=== PATIENT | female | born 1965 | race Hispanic/Latino ===

== ENCOUNTER 2017-03-01 17:53 | Emergency (ER) | payer OTHER ==
[~2017-03-01] VITALS: Ht 149.9 cm; Wt 80.8 kg
[~2017-03-01 17:53] MED LIST: ACETAMINOPHEN325 MG PO; ACTOS45 MG OR; AGGRENOX 200/251 CAP; AMLODIPINE2.5 MG PO; ASPIRIN325 MG; ATIVAN0.5 MG OR; ATORVASTATIN CA40 MG PO; BACTRIM DS1 TAB PO; BL ADULT ASA81 MG PO; CIPRO500 MG OR; CIPRO500 MG PO; CIPROFLOXACN500 MG PO; COREG6.25 MG PO; COZAAR50 MG PO; DIFLUCAN150 MG OR; FERR SULFATE325 MG OR; FLUCONAZOLE150 MG PO; GABAPENTIN300 MG PO; GLIPIZIDE ER10 M1 OR; GLUCOVANCE5 MG/500 M OR; GLYB/METFO5 MG/500 M OR; HUMULIN 70/30 SC; HYDROCHLOROT12.5 MG OR; HYDROCHLOROT12.5 MG PO; KEFLEX500 M1 PO; LEVAQUIN500 MG OR; LISINOPRIL10 MG PO; LISINOPRIL5 MG PO; LOPID600 MG OR; LOPID600 MG PO; LOSARTAN POT25 MG PO; MACROBID100 MG OR; MECLIZINE25 M1 PO; METFORMIN1000 MG OR; METFORMIN500 M1 OR; METFORMIN500 MG PO; MICRONASE5 MG OR; NIFEDIAC CC60 MG OR; NOVOLIN 70/30 INNLT SC; NOVOLIN 70/30 SC; PENTOXIFYLLI400 MG PO; PLAVIX75 MG PO; PRAVACHOL20 MG OR; PRENATAL1 TAB OR; PT DOESN'T KNOW MEDS; SERTRALINE HCL100 MG PO; SIMVASTATIN40 MG PO; TAM75CAP PO; TESSALON PER100 MG PO; TRICOR145 MG PO; ULTRAM50 MG OR; ULTRAM50 MG PO; VIBRAMYCIN100 MG OR; ZESTRIL10 M1 OR; ZITHROMAX250 MG OR; ZITHROMAX250 MG PO; ZOFRAN ODT4 MG OR; ZOFRAN ODT4 MG PO; ZOFRAN ODT8 MG SL; ZOLOFT50 MG PO
[2017-03-01] MEDS ORDERED: ZESTRIL10 MG PO (18:12)
[2017-03-01] MEDS ORDERED: METFORMIN500 M2 PO (18:13)
[2017-03-01 18:53] LABS: URINE BILIRUBIN - DIPSTICK NEGATIVE (NEGATIVE); URINE BLOOD DIPSTICK TRACE-INTACT (NEGATIVE); URINE COLOR YELLOW; URINE GLUCOSE - DIPSTICK >=1000 mg/dL (NEGATIVE); URINE KETONE NEGATIVE (NEGATIVE); URINE LEUK ESTERASE NEGATIVE (NEGATIVE); URINE PH 5.5 (4.5-8.0); URINE PROTEIN - DIPSTICK NEGATIVE (NEG-TRACE); URINE SPECIFIC GRAVITY 1.015; URINE UROBILINOGEN - DIPSTICK 0.2 E.U./dL (0.2)
[2017-03-01 18:54] LABS: HEMATOCRIT 39.1 % (37.0-47.0); HEMOGLOBIN 13.5 g/dl (12.0-16.0); IMMATURE GRANULOCYTES 0.4 % (0.0-1.0); MEAN CELL VOLUME 83.2 fL CALC (80.0-100.0); MEAN CORPUSCULAR HGB 28.7 pG CALC (26.0-32.0); MEAN CORPUSCULAR HGB CONC 34.5 g/L CALC (32.0-36.0); NEUT# 6.22 thou/uL (2.00-7.15); RED BLOOD COUNT 4.7 mill/uL (4.20-5.60); RED CELL DISTRI WIDTH 12.7 % (11.5-15.5)
[2017-03-01 18:56] LABS: URINE CLARITY CLOUDY; URINE NITRITE - DIPSTICK POSITIVE (Negative)
[2017-03-01 19:03] LABS: URINE BACTERIA MODERATE hpf; URINE SQUAMOUS EPITHELIAL CELL FEW EPI/hpf (0-FEW); URINE WBC 20-50 WBC/hpf (0-5)
[2017-03-01 19:14] LABS: ALBUMIN 4.4 g/dL (3.2-5.0); ALKALINE PHOSPHATASE 192 u/l (38-126); ANION GAP 18 (6-22 (CALC)); BILIRUBIN, TOTAL 0.9 mg/dL (0.0-1.4); BUN 15 mg/dL (7-17); BUN/CREATININE RATIO 26 (12-20 (CALC)); CALCIUM 9.2 mg/dL (8.4-10.2); CARBON DIOXIDE 25 mmol/l (22-30); CHLORIDE 98 mmol/l (95-108); CREATININE 0.6 mg/dL (0.5-1.0); GFR > 60 ML/MIN (>=60 (CALC)); GFR FOR AFR.AMER. > 60 ML/MIN (>=60 (CALC)); GLUCOSE 346 mg/dL (65-105); SGOT/AST 29 u/l (14-36); SGPT/ALT 41 u/l (9-52); SODIUM 137 mmol/l (137-146); TOTAL PROTEIN 8.1 g/dL (6.3-8.2)
[2017-03-01] MEDS ORDERED: PYRIDIUM200 MG PO (20:38)
[2017-03-01] MEDS ORDERED: CIPROFLOXACN500 MG PO (20:38)
[2017-03-01 20:43] VITALS: BP 144/65
== END 2017-03-01 20:50 | disposition home or self-care (01) | DRG 690 ==
LOC: ED 17:53
PROVIDERS: Emergency Medicine
DX: N39.0 Urinary tract infection, site not specified (principal); I10 Essential (primary) hypertension; G45.9 Transient cerebral ischemic attack, unspecified; F41.9 Anxiety disorder, unspecified; E11.9 Type 2 diabetes mellitus without complications; B96.20 Unspecified Escherichia coli [E. coli] as the cause of diseases classified elsewhere; R10.32 Left lower quadrant pain; R10.31 Right lower quadrant pain
CPT/HCPCS: J1956

== ENCOUNTER 2017-03-28 14:03 | Inpatient (IN) | payer OTHER ==
[~2017-03-28] VITALS: Ht 149.9 cm; Wt 83.0 kg
[~2017-03-28 14:03] MED LIST changes: +METFORMIN500 M2 PO; +PYRIDIUM200 MG PO; +ZESTRIL10 MG PO
[2017-03-28 14:53] LABS: HEMATOCRIT 41.5 % (37.0-47.0); HEMOGLOBIN 13.6 g/dl (12.0-16.0); IMMATURE GRANULOCYTES 0.2 % (0.0-1.0); MEAN CELL VOLUME 86.8 fL CALC (80.0-100.0); MEAN CORPUSCULAR HGB 28.5 pG CALC (26.0-32.0); MEAN CORPUSCULAR HGB CONC 32.8 g/L CALC (32.0-36.0); PLATELET COUNT 141 thou/uL (130-400); RED BLOOD COUNT 4.78 mill/uL (4.20-5.60); RED CELL DISTRI WIDTH 13.2 % (11.5-15.5)
[2017-03-28 14:55] LABS: URINE BILIRUBIN - DIPSTICK NEGATIVE (NEGATIVE); URINE BLOOD DIPSTICK SMALL (NEGATIVE); URINE COLOR YELLOW; URINE GLUCOSE - DIPSTICK >=1000 mg/dL (NEGATIVE); URINE KETONE NEGATIVE (NEGATIVE); URINE NITRITE - DIPSTICK NEGATIVE (Negative); URINE PROTEIN - DIPSTICK TRACE mg/dL (NEG-TRACE); URINE UROBILINOGEN - DIPSTICK 0.2 E.U./dL (0.2)
[2017-03-28 14:56] LABS: URINE LEUK ESTERASE SMALL (NEGATIVE)
[2017-03-28 14:57] LABS: URINE CLARITY CLOUDY
[2017-03-28 15:05] LABS: ALBUMIN 4.5 g/dL (3.2-5.0); ALKALINE PHOSPHATASE 157 u/l (38-126); ANION GAP 19 (6-22 (CALC)); BILIRUBIN, TOTAL 0.9 mg/dL (0.0-1.4); BUN 15 mg/dL (7-17); BUN/CREATININE RATIO 23 (12-20 (CALC)); CALCIUM 9.4 mg/dL (8.4-10.2); CARBON DIOXIDE 31 mmol/l (22-30); CHLORIDE 100 mmol/l (95-108); CREATININE 0.6 mg/dL (0.5-1.0); GFR > 60 ML/MIN (>=60 (CALC)); GFR FOR AFR.AMER. > 60 ML/MIN (>=60 (CALC)); GLUCOSE 316 mg/dL (65-105); LIPASE 53 u/l (23-300); POTASSIUM 4.3 mmol/l (3.5-5.1); SGOT/AST 40 u/l (14-36); SGPT/ALT 33 u/l (9-52); SODIUM 146 mmol/l (137-146)
[2017-03-28 15:08] LABS: URINE BACTERIA RARE hpf; URINE SQUAMOUS EPITHELIAL CELL FEW EPI/hpf (0-FEW)
[2017-03-28 15:17] LABS: MANUAL DIFFERENTIAL YES
[2017-03-28 15:18] LABS: BAND 38 % (0-8)
[2017-03-28] MEDS ORDERED: NOVOLIN N100 UNIT/1 SC (16:29)
[2017-03-28] MEDS ORDERED: AMLODIPINE BESYL5 MG PO (16:29)
[2017-03-28] MEDS ORDERED: ATORVASTATIN CA40 MG PO (16:30)
[2017-03-28 17:38] VITALS: BP 115/61
[2017-03-28 19:30] VITALS: BP 98/68
[2017-03-29 00:30] VITALS: BP 115/72
[2017-03-29 04:40] VITALS: BP 115/72
[2017-03-29 05:52] LABS: HEMATOCRIT 32.3 % (37.0-47.0); HEMOGLOBIN 10.7 g/dl (12.0-16.0); MEAN CELL VOLUME 87.3 fL CALC (80.0-100.0); MEAN CORPUSCULAR HGB 28.9 pG CALC (26.0-32.0); MEAN CORPUSCULAR HGB CONC 33.1 g/L CALC (32.0-36.0); RED BLOOD COUNT 3.7 mill/uL (4.20-5.60); RED CELL DISTRI WIDTH 13.3 % (11.5-15.5)
[2017-03-29 06:05] LABS: ANION GAP 14 (6-22 (CALC)); BUN 11 mg/dL (7-17); BUN/CREATININE RATIO 19 (12-20 (CALC)); CALCIUM 7.8 mg/dL (8.4-10.2); CARBON DIOXIDE 27 mmol/l (22-30); CHLORIDE 105 mmol/l (95-108); CREATININE 0.6 mg/dL (0.5-1.0); GFR > 60 ML/MIN (>=60 (CALC)); GFR FOR AFR.AMER. > 60 ML/MIN (>=60 (CALC)); GLUCOSE 324 mg/dL (65-105); MAGNESIUM 1.2 mg/dL (1.6-2.3); POTASSIUM 3.7 mmol/l (3.5-5.1); SODIUM 141 mmol/l (137-146)
[2017-03-29 08:14] VITALS: BP 129/63
[2017-03-29 16:19] VITALS: BP 150/80; BP 180/90
[2017-03-29 19:30] VITALS: BP 150/76
[2017-03-29 23:48] VITALS: BP 127/72
[2017-03-30 05:02] VITALS: BP 170/82
[2017-03-30 06:03] LABS: HEMATOCRIT 30.1 % (37.0-47.0); MEAN CELL VOLUME 86.7 fL CALC (80.0-100.0); MEAN CORPUSCULAR HGB 28.8 pG CALC (26.0-32.0); MEAN CORPUSCULAR HGB CONC 33.2 g/L CALC (32.0-36.0); RED BLOOD COUNT 3.47 mill/uL (4.20-5.60); RED CELL DISTRI WIDTH 13.2 % (11.5-15.5)
[2017-03-30 06:16] LABS: ANION GAP 13 (6-22 (CALC)); BUN 7 mg/dL (7-17); BUN/CREATININE RATIO 12 (12-20 (CALC)); CALCIUM 8.2 mg/dL (8.4-10.2); CARBON DIOXIDE 29 mmol/l (22-30); CHLORIDE 104 mmol/l (95-108); CREATININE 0.5 mg/dL (0.5-1.0); GFR > 60 ML/MIN (>=60 (CALC)); GFR FOR AFR.AMER. > 60 ML/MIN (>=60 (CALC)); GLUCOSE 136 mg/dL (65-105); MAGNESIUM 1.3 mg/dL (1.6-2.3); POTASSIUM 3.6 mmol/l (3.5-5.1); SODIUM 141 mmol/l (137-146)
[2017-03-30 07:48] VITALS: BP 177/85
[2017-03-30 16:30] VITALS: BP 174/80
[2017-03-30 19:20] VITALS: BP 198/98
[2017-03-31 05:22] VITALS: BP 130/80
[2017-03-31 05:51] LABS: HEMATOCRIT 30.7 % (37.0-47.0); HEMOGLOBIN 10.2 g/dl (12.0-16.0); IMMATURE GRANULOCYTES 0.4 % (0.0-1.0); MEAN CELL VOLUME 86.5 fL CALC (80.0-100.0); MEAN CORPUSCULAR HGB 28.7 pG CALC (26.0-32.0); MEAN CORPUSCULAR HGB CONC 33.2 g/L CALC (32.0-36.0); NEUT# 2.22 thou/uL (2.00-7.15); RED BLOOD COUNT 3.55 mill/uL (4.20-5.60); RED CELL DISTRI WIDTH 13.1 % (11.5-15.5)
[2017-03-31 05:59] LABS: ANION GAP 15 (6-22 (CALC)); BUN 9 mg/dL (7-17); BUN/CREATININE RATIO 17 (12-20 (CALC)); CALCIUM 8.6 mg/dL (8.4-10.2); CARBON DIOXIDE 28 mmol/l (22-30); CHLORIDE 105 mmol/l (95-108); CREATININE 0.5 mg/dL (0.5-1.0); GFR > 60 ML/MIN (>=60 (CALC)); GFR FOR AFR.AMER. > 60 ML/MIN (>=60 (CALC)); GLUCOSE 198 mg/dL (65-105); MAGNESIUM 1.8 mg/dL (1.6-2.3); POTASSIUM 3.8 mmol/l (3.5-5.1); SODIUM 144 mmol/l (137-146)
[2017-03-31 08:00] VITALS: BP 190/82
[2017-03-31 15:17] VITALS: BP 156/73
[2017-03-31 19:36] VITALS: BP 108/46
[2017-03-31 19:38] VITALS: BP 166/66
[2017-04-01 05:35] VITALS: BP 135/74
[2017-04-01 05:48] LABS: HEMATOCRIT 33.6 % (37.0-47.0); HEMOGLOBIN 11.4 g/dl (12.0-16.0); IMMATURE GRANULOCYTES 0.6 % (0.0-1.0); MEAN CELL VOLUME 85.3 fL CALC (80.0-100.0); MEAN CORPUSCULAR HGB 28.9 pG CALC (26.0-32.0); MEAN CORPUSCULAR HGB CONC 33.9 g/L CALC (32.0-36.0); NEUT# 2.72 thou/uL (2.00-7.15); RED BLOOD COUNT 3.94 mill/uL (4.20-5.60); RED CELL DISTRI WIDTH 12.8 % (11.5-15.5)
[2017-04-01 06:03] LABS: ANION GAP 17 (6-22 (CALC)); BUN 12 mg/dL (7-17); BUN/CREATININE RATIO 24 (12-20 (CALC)); CARBON DIOXIDE 28 mmol/l (22-30); CHLORIDE 101 mmol/l (95-108); CREATININE 0.5 mg/dL (0.5-1.0); GFR > 60 ML/MIN (>=60 (CALC)); GFR FOR AFR.AMER. > 60 ML/MIN (>=60 (CALC)); GLUCOSE 225 mg/dL (65-105); MAGNESIUM 1.4 mg/dL (1.6-2.3); POTASSIUM 3.7 mmol/l (3.5-5.1); SODIUM 143 mmol/l (137-146)
[2017-04-01 08:02] VITALS: BP 156/85
[2017-04-01] MEDS ORDERED: ASPIRIN CHEWABL81 MG PO (12:36)
[2017-04-01] MEDS ORDERED: LEVEMIR100 UNIT/M SC (12:36)
[2017-04-01] MEDS ORDERED: LISINOPRIL20 M1 PO (12:36)
[2017-04-01] MEDS ORDERED: FLORASTOR250 M1 PO (12:36)
[2017-04-01] MEDS ORDERED: ROCEPHIN 2 GM2 GM IV (12:37)
== END 2017-04-01 16:53 | disposition home or self-care (01) | DRG 872 ==
LOC: ED 14:03 → ED-I 16:33 → ED 16:45 → MS2 16:46
PROVIDERS: Family Medicine; Nurse Practitioner Family; ADMIT Internal Medicine; ATTEND Internal Medicine
PROC: 02HV33Z Insertion of Infusion Device into Superior Vena Cava, Percutaneous Approach (ICD-10-PCS; principal; 2017-03-28)
PROC: 3E0234Z Introduction of Serum, Toxoid and Vaccine into Muscle, Percutaneous Approach (ICD-10-PCS; 2017-03-31)
PROC: 3E0234Z Introduction of Serum, Toxoid and Vaccine into Muscle, Percutaneous Approach (ICD-10-PCS; 2017-03-31)
DX: A41.51 Sepsis due to Escherichia coli [E. coli] (principal); E11.65 Type 2 diabetes mellitus with hyperglycemia; N10 Acute pyelonephritis; I10 Essential (primary) hypertension; F17.210 Nicotine dependence, cigarettes, uncomplicated; E78.5 Hyperlipidemia, unspecified; F32.9 Major depressive disorder, single episode, unspecified; E87.6 Hypokalemia; E83.42 Hypomagnesemia; D64.9 Anemia, unspecified; E66.9 Obesity, unspecified; Z68.36 Body mass index [BMI] 36.0-36.9, adult; Z91.14 Patient's other noncompliance with medication regimen; Z23 Encounter for immunization; Z79.84 Long term (current) use of oral hypoglycemic drugs; Z79.4 Long term (current) use of insulin
CPT/HCPCS: J0692; J3475; Q9967

== ENCOUNTER 2017-07-20 09:48 | Day surgery (SDC) | payer OTHER ==
[~2017-07-20 09:48] MED LIST changes: +AMLODIPINE BESYL5 MG PO; +ASPIRIN CHEWABL81 MG PO; +FLORASTOR250 M1 PO; +LEVEMIR100 UNIT/M SC; +LISINOPRIL20 M1 PO; +LOSARTAN POT50 MG PO; +NOVOLIN N100 UNIT/1 SC; +NOVOLOG100 UNIT/M SC; +ROCEPHIN 2 GM2 GM IV
[2017-07-20 12:27] VITALS: BP 146/60
== END 2017-07-20 12:25 | disposition home or self-care (01) | DRG 392 ==
LOC: ENDO 09:48 → ORM 11:30 → ENDO 12:25
PROVIDERS: ATTEND Surgery
PROC: 0DJD8ZZ Inspection of Lower Intestinal Tract, Via Natural or Artificial Opening Endoscopic (ICD-10-PCS; principal; 2017-07-20)
DX: R19.5 Other fecal abnormalities (principal); E11.9 Type 2 diabetes mellitus without complications; I10 Essential (primary) hypertension; E66.9 Obesity, unspecified

== ENCOUNTER 2018-05-08 20:59 | Emergency (ER) | payer OTHER ==
[~2018-05-08] VITALS: Ht 154.9 cm; Wt 70.4 kg
[2018-05-08] MEDS ORDERED: LOSARTAN/HCT1 TA1 PO (21:11)
[2018-05-08] MEDS ORDERED: TRICOR145 MG PO (21:13)
[2018-05-08 21:31] LABS: HEMATOCRIT 37.1 % (37.0-47.0); IMMATURE GRANULOCYTES 0.2 % (0.0-5.0); MEAN CORPUSCULAR HGB 29.1 pG CALC (26.0-32.0); NEUT# 2.5 thou/uL (2.00-7.15); RED BLOOD COUNT 4.47 mill/uL (4.20-5.60); RED CELL DISTRI WIDTH 12.8 % (11.5-15.5)
[2018-05-08 21:32] LABS: URINE BILIRUBIN - DIPSTICK NEGATIVE (NEGATIVE); URINE BLOOD DIPSTICK NEGATIVE (NEGATIVE); URINE CLARITY CLEAR; URINE COLOR YELLOW; URINE GLUCOSE - DIPSTICK >=1000 mg/dL (NEGATIVE); URINE KETONE NEGATIVE (NEGATIVE); URINE LEUK ESTERASE NEGATIVE (NEGATIVE); URINE NITRITE - DIPSTICK NEGATIVE (Negative); URINE PH 5.5 (4.5-8.0); URINE PROTEIN - DIPSTICK NEGATIVE (NEG-TRACE); URINE UROBILINOGEN - DIPSTICK 0.2 E.U./dL (0.2)
[2018-05-08 21:46] LABS: ALBUMIN 4.2 g/dL (3.2-5.0); ALKALINE PHOSPHATASE 199 u/l (38-126); ANION GAP 13 (6-22 (CALC)); BILIRUBIN, TOTAL 0.4 mg/dL (0.0-1.4); BUN 16 mg/dL (7-17); BUN/CREATININE RATIO 28 (12-20 (CALC)); CARBON DIOXIDE 27 mmol/l (22-30); CHLORIDE 98 mmol/l (95-108); CREATININE 0.6 mg/dL (0.5-1.0); GFR > 60 ML/MIN (>=60 (CALC)); GFR FOR AFR.AMER. > 60 ML/MIN (>=60 (CALC)); POTASSIUM 4.2 mmol/l (3.5-5.1); SGOT/AST 22 u/l (14-36); TOTAL PROTEIN 7.8 g/dL (6.3-8.2)
[2018-05-08 21:51] LABS: SODIUM 134 mmol/l (137-146)
[2018-05-08 21:59] LABS: MYOGLOBIN 19 ng/mL (0 - 62)
[2018-05-08 23:18] VITALS: BP 129/65
== END 2018-05-08 23:18 | disposition home or self-care (01) ==
LOC: ED 20:59
PROVIDERS: Family Medicine
DX: E11.65 Type 2 diabetes mellitus with hyperglycemia (principal); I10 Essential (primary) hypertension; Z86.73 Personal history of transient ischemic attack (TIA), and cerebral infarction without residual deficits; Z79.4 Long term (current) use of insulin

== ENCOUNTER 2018-06-06 11:33 | Emergency (ER) | payer OTHER ==
[~2018-06-06] VITALS: Ht 154.9 cm; Wt 65.0 kg
[~2018-06-06 11:33] MED LIST changes: +LOSARTAN/HCT1 TA1 PO
[2018-06-06 13:02] LABS: HEMOGLOBIN 13.6 g/dl (12.0-16.0); IMMATURE GRANULOCYTES 0.3 % (0.0-5.0); MEAN CELL VOLUME 84.2 fL CALC (80.0-100.0); MEAN CORPUSCULAR HGB 28.6 pG CALC (26.0-32.0); NEUT# 2.79 thou/uL (2.00-7.15); RED BLOOD COUNT 4.75 mill/uL (4.20-5.60); RED CELL DISTRI WIDTH 13.4 % (11.5-15.5)
[2018-06-06 13:36] LABS: URINE BLOOD DIPSTICK MODERATE (NEGATIVE); URINE COLOR YELLOW; URINE GLUCOSE - DIPSTICK 250 mg/dL (NEGATIVE); URINE KETONE TRACE mg/dL (NEGATIVE); URINE NITRITE - DIPSTICK NEGATIVE (Negative); URINE PROTEIN - DIPSTICK 100 mg/dL (NEG-TRACE); URINE SPECIFIC GRAVITY 1.025
[2018-06-06 13:37] LABS: URINE BACTERIA FEW hpf; URINE BILIRUBIN - DIPSTICK NEGATIVE (NEGATIVE); URINE CLARITY CLOUDY; URINE LEUK ESTERASE MODERATE (NEGATIVE); URINE WBC TNTC WBC/hpf (0-5)
[2018-06-06 13:53] LABS: ALBUMIN 3.6 g/dL (3.2-5.0); ALKALINE PHOSPHATASE 217 u/l (38-126); ANION GAP 12 (6-22 (CALC)); BILIRUBIN, TOTAL 1.4 mg/dL (0.0-1.4); BUN 24 mg/dL (7-17); BUN/CREATININE RATIO 32 (12-20 (CALC)); CARBON DIOXIDE 32 mmol/l (22-30); CHLORIDE 97 mmol/l (95-108); CREATININE 0.7 mg/dL (0.5-1.0); GFR > 60 ML/MIN (>=60 (CALC)); GFR FOR AFR.AMER. > 60 ML/MIN (>=60 (CALC)); POTASSIUM 3.7 mmol/l (3.5-5.1); SODIUM 137 mmol/l (137-146); TOTAL PROTEIN 7.2 g/dL (6.3-8.2)
[2018-06-06 13:54] LABS: SGOT/AST 163 u/l (14-36)
[2018-06-06] MEDS ORDERED: OMNICEF300 M1 PO (14:06)
[2018-06-06] MEDS ORDERED: PYRIDIUM200 MG PO (14:06)
[2018-06-06 14:10] VITALS: BP 107/68
== END 2018-06-06 14:10 | disposition home or self-care (01) ==
LOC: ED 11:33
DX: N39.0 Urinary tract infection, site not specified (principal); R50.9 Fever, unspecified; R30.0 Dysuria; R35.0 Frequency of micturition; B96.20 Unspecified Escherichia coli [E. coli] as the cause of diseases classified elsewhere

== ENCOUNTER 2018-06-17 14:56 | Emergency (ER) | payer OTHER ==
[~2018-06-17] VITALS: Ht 154.9 cm; Wt 75.0 kg
[~2018-06-17 14:56] MED LIST changes: +OMNICEF300 M1 PO
[2018-06-17 16:37] LABS: HEMATOCRIT 40.9 % (37.0-47.0); HEMOGLOBIN 13.7 g/dl (12.0-16.0); IMMATURE GRANULOCYTES 0.4 % (0.0-5.0); MEAN CELL VOLUME 83.8 fL CALC (80.0-100.0); MEAN CORPUSCULAR HGB 28.1 pG CALC (26.0-32.0); MEAN CORPUSCULAR HGB CONC 33.5 g/L CALC (32.0-36.0); NEUT# 7.6 thou/uL (2.00-7.15); RED BLOOD COUNT 4.88 mill/uL (4.20-5.60); RED CELL DISTRI WIDTH 12.8 % (11.5-15.5)
[2018-06-17 16:39] LABS: URINE BILIRUBIN - DIPSTICK NEGATIVE (NEGATIVE); URINE BLOOD DIPSTICK LARGE (NEGATIVE); URINE COLOR YELLOW; URINE GLUCOSE - DIPSTICK >=1000 mg/dL (NEGATIVE); URINE KETONE NEGATIVE (NEGATIVE); URINE LEUK ESTERASE TRACE (NEGATIVE); URINE NITRITE - DIPSTICK NEGATIVE (Negative); URINE PROTEIN - DIPSTICK NEGATIVE (NEG-TRACE); URINE UROBILINOGEN - DIPSTICK 0.2 E.U./dL (0.2)
[2018-06-17 16:45] LABS: URINE SQUAMOUS EPITHELIAL CELL FEW EPI/hpf (0-FEW)
[2018-06-17 16:46] LABS: URINE YEAST MODERATE hpf
[2018-06-17 16:49] LABS: ALKALINE PHOSPHATASE 281 u/l (38-126); BILIRUBIN, TOTAL 0.8 mg/dL (0.0-1.4); BUN 24 mg/dL (7-17); BUN/CREATININE RATIO 27 (12-20 (CALC)); CARBON DIOXIDE 25 mmol/l (22-30); CHLORIDE 96 mmol/l (95-108); CREATININE 0.9 mg/dL (0.5-1.0); GFR > 60 ML/MIN (>=60 (CALC)); GFR FOR AFR.AMER. > 60 ML/MIN (>=60 (CALC)); SODIUM 136 mmol/l (137-146)
[2018-06-17 16:56] LABS: ALBUMIN 4.4 g/dL (3.2-5.0); ANION GAP 20 (6-22 (CALC)); POTASSIUM 4.5 mmol/l (3.5-5.1); SGOT/AST 29 u/l (14-36); TOTAL PROTEIN 8.8 g/dL (6.3-8.2)
[2018-06-17] MEDS ORDERED: OMNI-PAC300 MG PO (18:33)
[2018-06-17] MEDS ORDERED: CLARITHROMYC500 MG PO (19:35)
[2018-06-17 20:00] VITALS: BP 169/82
--- NOTE | 2018-06-20 09:24 | NUR ---
Called to talk to pt about blood culture results. No answer, unable to leave message. Faxed results to PCP, Dr Arenas, who pt was to FU with in 1-2 days. Will attempt to contact pt again.
== END 2018-06-17 20:12 | disposition home or self-care (01) ==
LOC: ED 14:56
PROVIDERS: Family Medicine
DX: N39.0 Urinary tract infection, site not specified (principal); J18.9 Pneumonia, unspecified organism; K04.7 Periapical abscess without sinus; I10 Essential (primary) hypertension; E11.65 Type 2 diabetes mellitus with hyperglycemia; Z86.73 Personal history of transient ischemic attack (TIA), and cerebral infarction without residual deficits; R78.81 Bacteremia

== ENCOUNTER 2018-06-21 15:36 | Emergency (ER) | payer OTHER ==
[~2018-06-21] VITALS: Ht 154.9 cm; Wt 70.0 kg
[~2018-06-21 15:36] MED LIST changes: +CLARITHROMYC500 MG PO; +OMNI-PAC300 MG PO
[2018-06-21] MEDS ORDERED: METFORMIN500 MG PO (16:36)
[2018-06-21] MEDS ORDERED: CLEOCIN300 MG PO (17:10)
[2018-06-21 17:56] VITALS: BP 144/77
== END 2018-06-21 17:56 | disposition home or self-care (01) ==
LOC: ED 15:36
DX: K04.7 Periapical abscess without sinus (principal); E11.9 Type 2 diabetes mellitus without complications; I10 Essential (primary) hypertension

== ENCOUNTER 2018-06-23 10:19 | Emergency (ER) | payer OTHER ==
[~2018-06-23] VITALS: Ht 154.9 cm; Wt 70.0 kg
[~2018-06-23 10:19] MED LIST changes: +CLEOCIN300 MG PO
[2018-06-23] MEDS ORDERED: MOTRIN800 MG PO (10:51)
[2018-06-23 11:00] VITALS: BP 139/79
[2018-06-24] MEDS ORDERED: CLINDAMYCIN300 M1 PO (17:08)
== END 2018-06-23 11:09 | disposition home or self-care (01) ==
LOC: ED 10:19
DX: K04.7 Periapical abscess without sinus (principal); E11.9 Type 2 diabetes mellitus without complications; I10 Essential (primary) hypertension; Z86.73 Personal history of transient ischemic attack (TIA), and cerebral infarction without residual deficits

== ENCOUNTER 2018-06-24 12:40 | Emergency (ER) | payer OTHER ==
[~2018-06-24] VITALS: Ht 154.9 cm; Wt 100.0 kg
[~2018-06-24 12:40] MED LIST changes: +MOTRIN800 MG PO
[2018-06-24 14:02] LABS: ALKALINE PHOSPHATASE 242 u/l (38-126); ANION GAP 16 (6-22 (CALC)); BILIRUBIN, TOTAL 0.3 mg/dL (0.0-1.4); BUN 14 mg/dL (7-17); BUN/CREATININE RATIO 24 (12-20 (CALC)); CARBON DIOXIDE 25 mmol/l (22-30); CHLORIDE 100 mmol/l (95-108); CREATININE 0.6 mg/dL (0.5-1.0); GFR > 60 ML/MIN (>=60 (CALC)); GFR FOR AFR.AMER. > 60 ML/MIN (>=60 (CALC)); POTASSIUM 4.4 mmol/l (3.5-5.1); SGOT/AST 28 u/l (14-36); SODIUM 137 mmol/l (137-146); TOTAL PROTEIN 7.9 g/dL (6.3-8.2)
[2018-06-24 14:13] LABS: HEMATOCRIT 34.7 % (37.0-47.0); HEMOGLOBIN 11.9 g/dl (12.0-16.0); IMMATURE GRANULOCYTES 0.7 % (0.0-5.0); MEAN CORPUSCULAR HGB 28.5 pG CALC (26.0-32.0); MEAN CORPUSCULAR HGB CONC 34.3 g/L CALC (32.0-36.0); NEUT# 2.19 thou/uL (2.00-7.15); RED BLOOD COUNT 4.18 mill/uL (4.20-5.60); RED CELL DISTRI WIDTH 12.6 % (11.5-15.5)
[2018-06-24 14:42] LABS: URINE BILIRUBIN - DIPSTICK NEGATIVE (NEGATIVE); URINE BLOOD DIPSTICK TRACE-INTACT (NEGATIVE); URINE COLOR YELLOW; URINE GLUCOSE - DIPSTICK >=1000 mg/dL (NEGATIVE); URINE KETONE NEGATIVE (NEGATIVE); URINE LEUK ESTERASE NEGATIVE (NEGATIVE); URINE NITRITE - DIPSTICK NEGATIVE (Negative); URINE PROTEIN - DIPSTICK NEGATIVE (NEG-TRACE); URINE UROBILINOGEN - DIPSTICK 0.2 E.U./dL (0.2)
[2018-06-24] MEDS ORDERED: CLINDAMYCIN300 M1 PO (17:08)
[2018-06-24 18:20] VITALS: BP 136/82
== END 2018-06-24 18:20 | disposition home or self-care (01) ==
LOC: ED 12:40
PROVIDERS: Family Medicine
DX: M27.2 Inflammatory conditions of jaws (principal); I10 Essential (primary) hypertension; E11.9 Type 2 diabetes mellitus without complications; Z86.73 Personal history of transient ischemic attack (TIA), and cerebral infarction without residual deficits; R30.0 Dysuria
CPT/HCPCS: Q9967; S0073

== ENCOUNTER 2018-11-12 10:40 | Observation (INO) | payer OTHER ==
[~2018-11-12] VITALS: Ht 154.9 cm; Wt 72.0 kg
[~2018-11-12 10:40] MED LIST changes: +CLINDAMYCIN300 M1 PO
--- NOTE | 2018-11-12 11:20 | NUR ---
P TAMB TO RESTROOM WITHOUT DISTRESS
[2018-11-12] MEDS ORDERED: IBUPROFEN200 MG PO (11:25)
[2018-11-12 11:49] LABS: URINE BILIRUBIN - DIPSTICK NEGATIVE (NEGATIVE); URINE BLOOD DIPSTICK NEGATIVE (NEGATIVE); URINE COLOR YELLOW; URINE GLUCOSE - DIPSTICK >=1000 mg/dL (NEGATIVE); URINE KETONE NEGATIVE (NEGATIVE); URINE LEUK ESTERASE NEGATIVE (NEGATIVE); URINE NITRITE - DIPSTICK POSITIVE (Negative); URINE PH 5.5 (4.5-8.0); URINE PROTEIN - DIPSTICK NEGATIVE (NEG-TRACE); URINE SPECIFIC GRAVITY <=1.005; URINE UROBILINOGEN - DIPSTICK 0.2 E.U./dL (0.2)
[2018-11-12 11:55] LABS: URINE BACTERIA MANY hpf; URINE RBC 0-2 RBC/hpf (0-5); URINE SQUAMOUS EPITHELIAL CELL FEW EPI/hpf (0-FEW)
[2018-11-12 12:11] LABS: HEMATOCRIT 35.7 % (37.0-47.0); HEMOGLOBIN 12.2 g/dl (12.0-16.0); IMMATURE GRANULOCYTES 0.4 % (0.0-5.0); MEAN CELL VOLUME 81.9 fL CALC (80.0-100.0); MEAN CORPUSCULAR HGB CONC 34.2 g/L CALC (32.0-36.0); NEUT# 5.91 thou/uL (2.00-7.15); RED BLOOD COUNT 4.36 mill/uL (4.20-5.60); RED CELL DISTRI WIDTH 12.9 % (11.5-15.5)
[2018-11-12 12:43] LABS: BUN 20 mg/dL (7-17); BUN/CREATININE RATIO 33 (12-20 (CALC)); CARBON DIOXIDE 26 mmol/l (22-30); CHLORIDE 94 mmol/l (95-108); CREATININE 0.6 mg/dL (0.5-1.0); GFR > 60 ML/MIN (>=60 (CALC)); GFR FOR AFR.AMER. > 60 ML/MIN (>=60 (CALC))
[2018-11-12 12:48] LABS: ANION GAP 16 (6-22 (CALC)); SODIUM 131 mmol/l (137-146)
--- NOTE | 2018-11-12 13:43 | NUR ---
PT RECEIVES ABX, IVF, INSULIN VIA [facility] IV SITE.
[2018-11-12] MEDS ORDERED: LOFIBRA134 MG PO (13:53)
[2018-11-12] MEDS ORDERED: STOOL SOFTENER100 M1 PO (13:54)
[2018-11-12] MEDS ORDERED: ADVAIR DISK1 IN (13:55)
--- NOTE | 2018-11-12 14:24 | NUR ---
PT CAME FROM ER VIA WHEELCHAIR BY SOREN. STAND BY ASSIST TO SCALE AND THEN TO BED. SAFETY PRECAUTIONS REINFORCED AND CALL LIGHT IN REACH.
--- NOTE | 2018-11-12 14:35 | NUR ---
PT TO FLOOR WITHOUT AN ISSUE, REPORT WAS TO KAITLIN.
[2018-11-12 14:45] VITALS: BP 122/72
--- NOTE | 2018-11-12 16:11 | NUR ---
ASSESSMENT DONE. PT IS A&O X3. TELE IN PLACE. PT STATED THAT SHE HAS A HEADACHE 12/06. PT DENIES CHEST PAIN AT THIS TIME. 20 RAC THAT APPEAR HEALTHY. CALL LIGHT IN REACH.
--- NOTE | 2018-11-12 19:00 | NUR ---
REPORT FROM TIARRA PEREZ. PT INDIAN SPEAKING ONLY. ALERT AND ORIENTED. PT DENIES ANY PAIN OR DISCOMFORT AT THIS TIME. NO DISTRESS NOTED. IV SITE APPEARS HEALTHY. CALL LIGHT WITHIN REACH. WILL CONTINUE TO MONITOR.
[2018-11-12 19:12] VITALS: BP 102/59
--- NOTE | 2018-11-12 21:50 | NUR ---
PT MEDICATED FOR HEADACHE. DAUGHTER IN ROOM TO TRANSLATE. NO OTHER NEEDS AT THIS TIME. CALL LIGHT WITHIN REACH. WILL CONTINUE TO MONITOR.
[2018-11-12 23:40] VITALS: BP 133/51
--- NOTE | 2018-11-13 02:26 | NUR ---
PT RESTING IN BED WITH EYES CLOSED. NO S/S OF DISTRESS NOTED. CALL LIGHT WITHIN REACH. WILL CONTINUE TO MONITOR.
[2018-11-13 04:15] VITALS: BP 91/47
[2018-11-13 05:04] LABS: HEMATOCRIT 34.1 % (37.0-47.0); HEMOGLOBIN 11.2 g/dl (12.0-16.0); IMMATURE GRANULOCYTES 0.3 % (0.0-5.0); MEAN CELL VOLUME 84.6 fL CALC (80.0-100.0); MEAN CORPUSCULAR HGB 27.8 pG CALC (26.0-32.0); MEAN CORPUSCULAR HGB CONC 32.8 g/L CALC (32.0-36.0); NEUT# 4.56 thou/uL (2.00-7.15); RED BLOOD COUNT 4.03 mill/uL (4.20-5.60); RED CELL DISTRI WIDTH 12.7 % (11.5-15.5)
[2018-11-13 05:32] LABS: ALBUMIN 3.5 g/dL (3.2-5.0); ALKALINE PHOSPHATASE 196 u/l (38-126); ANION GAP 14 (6-22 (CALC)); BILIRUBIN, TOTAL 0.5 mg/dL (0.0-1.4); BUN 20 mg/dL (7-17); BUN/CREATININE RATIO 28 (12-20 (CALC)); CARBON DIOXIDE 25 mmol/l (22-30); CHLORIDE 99 mmol/l (95-108); CREATININE 0.7 mg/dL (0.5-1.0); GFR > 60 ML/MIN (>=60 (CALC)); GFR FOR AFR.AMER. > 60 ML/MIN (>=60 (CALC)); LIPASE 54 u/l (23-300); MAGNESIUM 1.5 mg/dL (1.6-2.3); SGOT/AST 28 u/l (14-36); SODIUM 133 mmol/l (137-146); TOTAL PROTEIN 6.8 g/dL (6.3-8.2)
[2018-11-13 05:38] LABS: AMYLASE < 30 u/l (30-110)
[2018-11-13 07:48] VITALS: BP 114/69
--- NOTE | 2018-11-13 07:48 | NUR ---
PT RESTING IN BED, NO SIGNS OF DISTRESS NOTED, RESP EVEN AND UNLABORED. PT GEORGIAN SPEAKING ONLY, FLAT AFFECT. DISCUSSED POC, INFORMED PT THAT ACCUCHECK REMAINS HIGH. SHE STATES THAT AT HOME SHE USUALLY RUNS 120'S. ASSESSMENT COMPLETED, CALL LIGHT IN REACH,CONTINUE TO MONITOR.
--- NOTE | 2018-11-13 08:02 | NUR ---
SKILLED NURSING PROFESSIONAL NOTIFIED OF ACCUCHECK 372, AND SLIDING SCALE WAS GIVEN EARLY FOR A GLUCOSE OF 440. ORDER RECEIVED FOR 5 U OF INSULIN NOW AND SKILLED NURSING PROFESSIONAL TO CHECK HGBAIC. PT AGREES.
[2018-11-13 08:49] LABS: CHOLESTEROL HDL RATIO 8.2 (<4.4 (CALC))
[2018-11-13 10:50] VITALS: BP 139/68
--- NOTE | 2018-11-13 11:27 | NUR ---
ACCUCHECK 318, MEDICATED WITH 10U OF INSULIN PER SLIDING SCALE. PT VOICES NO NEEDS OR COMPLAINTS AT THIS TIME, AT BEDSIDE. CALL LIGHT IN REACH,CONTINUE TO MONITOR.
--- NOTE | 2018-11-13 14:22 | NUR ---
PT RESTING IN BED WITH EYES CLOSED, NO SIGNS OF DISTRESS NOTED, RESP EVEN AND UNLABORED. CALL LIGHT IN REACH,CONTINUE TO MONITOR.
[2018-11-13 15:22] VITALS: BP 124/77
--- NOTE | 2018-11-13 15:45 | NUR ---
ENTERED ROOM DISCUSSED INCETIVE SPIROMETER WITH PT,PT DEMONSTRATED ITS USE. PHYTOCHEMISTRY PROFESSOR TO BEDSIDE TO DISCUSS ISSUES AT HOME, PT VERY DEPRESSED, CONCERNED OF HER MOTHER WHO IS IN [place] AND ILL, PT IS TO LEAVE NOVEMBER 27 TO .
[2018-11-13] MEDS ORDERED: ZOLOFT100 MG PO ×2 (15:58)
[2018-11-13] MEDS ORDERED: BACTRIM DS1 TAB PO (15:58)
--- NOTE | 2018-11-13 16:12 | NUR ---
PT AMBULATING HALLWAY, NO SIGNS OF DISTRESS NOTED, RESP EVEN AND UNLABORED. CONTINUE TO MONITOR.
--- NOTE | 2018-11-13 19:00 | NUR ---
SBAR REPORT RECEIVED FROM CULLEN. PATIENT RESTING COMFORTABLY IN BED WATCHING TV. DENIES PAIN AT THIS TIME. BED IN LOW POSITION, CALL LIGHT IN REACH, INSTRUCTED TO CALL FOR ASSISTANCE WHEN NEEDED.
[2018-11-13 19:05] VITALS: BP 153/74
[2018-11-13 23:56] VITALS: BP 119/60
--- NOTE | 2018-11-14 00:42 | NUR ---
RESTING QUIETLY EYES CLOSED. RESPIRATIONS EVEN, UNLABORED. NO DISTRESS NOTED. BED IN LOW POSITION, CALL LIGHT WITHIN REACH.
[2018-11-14 04:00] VITALS: BP 138/76
--- NOTE | 2018-11-14 04:40 | NUR ---
RESTING QUIETLY EYES CLOSED, CALL LIGHT WITHIN REACH.
[2018-11-14 07:13] VITALS: BP 168/78
--- NOTE | 2018-11-14 07:13 | NUR ---
PT RESTING IN BED. ASSESSMENT COMPLETED. NO C/O AT THIS TIME. PT UP TO CHAIR FROM BED. POC DISCUSSED. PT VERBALIZES UNDERSTANDING. WILL CONTINUE TO MONITOR. CALL LIGHT IN REACH.
[2018-11-14] MEDS ORDERED: KEFLEX500 M1 PO (13:10)
[2018-11-14] MEDS ORDERED: LOSARTAN POT50 MG PO (13:11)
--- NOTE | 2018-11-14 13:15 | NUR ---
MX FAMILY AT BEDSIDE. PT REMAINS SITTING UP IN CHAIR. AWAITING D/C ORDERS. WILL CONTINUE TO MONITOR. CALL LIGHT IN REACH.
[2018-11-14 14:03] VITALS: BP 147/79
--- NOTE | 2018-11-14 14:40 | NUR ---
Discharge instructions given. Patient verbalizes understanding of same. Discharged in stable condition via Wheelchair to Home with family. All belongings sent with pt.
== END 2018-11-14 14:40 | disposition home or self-care (01) ==
LOC: ED 10:40 → ED-I 13:10 → ED 13:22 → MS2 13:23
PROVIDERS: Family Medicine; Nurse Practitioner Family; ADMIT Internal Medicine Nephrology; ATTEND Internal Medicine Nephrology
DX: R07.9 Chest pain, unspecified (principal); N39.0 Urinary tract infection, site not specified; E11.65 Type 2 diabetes mellitus with hyperglycemia; I10 Essential (primary) hypertension; E78.5 Hyperlipidemia, unspecified; F32.9 Major depressive disorder, single episode, unspecified; K08.439 Partial loss of teeth due to caries, unspecified class; B96.20 Unspecified Escherichia coli [E. coli] as the cause of diseases classified elsewhere; Z86.73 Personal history of transient ischemic attack (TIA), and cerebral infarction without residual deficits; Z79.4 Long term (current) use of insulin
CPT/HCPCS: G0378; J1650

== ENCOUNTER 2019-01-22 20:06 | Emergency (ER) | payer OTHER ==
[~2019-01-22] VITALS: Ht 154.9 cm; Wt 64.0 kg
[~2019-01-22 20:06] MED LIST changes: +ADVAIR DISK1 IN; +IBUPROFEN200 MG PO; +LOFIBRA134 MG PO; +STOOL SOFTENER100 M1 PO; +ZOLOFT100 MG PO
[2019-01-22 21:24] VITALS: BP 146/70
[2019-01-22] MEDS ORDERED: AMPICILLIN500 MG PO (21:25)
[2019-01-22] MEDS ORDERED: AMOXICILLIN875 MG PO (21:28)
== END 2019-01-22 21:35 | disposition home or self-care (01) ==
LOC: ED 20:06
DX: I88.9 Nonspecific lymphadenitis, unspecified (principal); K08.89 Other specified disorders of teeth and supporting structures; E11.9 Type 2 diabetes mellitus without complications; I10 Essential (primary) hypertension; Z86.73 Personal history of transient ischemic attack (TIA), and cerebral infarction without residual deficits; Z79.4 Long term (current) use of insulin

== ENCOUNTER 2019-04-23 15:06 | Emergency (ER) | payer OTHER ==
[~2019-04-23] VITALS: Ht 154.9 cm; Wt 80.0 kg
[~2019-04-23 15:06] MED LIST changes: +AMOXICILLIN875 MG PO; +AMPICILLIN500 MG PO
[2019-04-23] MEDS ORDERED: LOSARTAN POTASS1 TA4 PO (15:30)
[2019-04-23 15:58] LABS: HEMATOCRIT 37.6 % (37.0-47.0); HEMOGLOBIN 12.7 g/dl (12.0-16.0); IMMATURE GRANULOCYTES 0.3 % (0.0-5.0); MEAN CORPUSCULAR HGB CONC 33.8 g/L CALC (32.0-36.0); NEUT# 3.85 thou/uL (2.00-7.15); RED BLOOD COUNT 4.53 mill/uL (4.20-5.60); RED CELL DISTRI WIDTH 12.8 % (11.5-15.5)
[2019-04-23 16:13] LABS: INTERNATIONAL NORMALIZED RATIO 0.9 RATIO (0.7-1.3); PROTHROMBIN TIME 9.5 SECONDS (9.0-12.5)
[2019-04-23 16:18] LABS: ALKALINE PHOSPHATASE 137 u/l (38-126); BILIRUBIN, TOTAL 0.5 mg/dL (0.0-1.4); BUN 14 mg/dL (7-17); BUN/CREATININE RATIO 24 (12-20 (CALC)); CARBON DIOXIDE 27 mmol/l (22-30); CHLORIDE 102 mmol/l (95-108); CREATININE 0.6 mg/dL (0.5-1.0); ETHYL ALCOHOL 0 mg/dl (0-30); GFR > 60 ML/MIN (>=60 (CALC)); GFR FOR AFR.AMER. > 60 ML/MIN (>=60 (CALC)); LIPASE 80 u/l (23-300); POTASSIUM 4.4 mmol/l (3.5-5.1); SGOT/AST 28 u/l (14-36)
[2019-04-23 16:21] LABS: ALBUMIN 4.4 g/dL (3.2-5.0); ANION GAP 16 (6-22 (CALC)); MAGNESIUM 1.1 mg/dL (1.6-2.3); SODIUM 141 mmol/l (137-146); TOTAL PROTEIN 8.4 g/dL (6.3-8.2)
[2019-04-23 17:06] LABS: URINE BILIRUBIN - DIPSTICK NEGATIVE (NEGATIVE); URINE BLOOD DIPSTICK NEGATIVE (NEGATIVE); URINE COLOR YELLOW; URINE GLUCOSE - DIPSTICK 250 mg/dL (NEGATIVE); URINE KETONE NEGATIVE (NEGATIVE); URINE NITRITE - DIPSTICK NEGATIVE (Negative); URINE PH 5.5 (4.5-8.0); URINE PROTEIN - DIPSTICK NEGATIVE (NEG-TRACE); URINE SPECIFIC GRAVITY 1.015; URINE UROBILINOGEN - DIPSTICK 0.2 E.U./dL (0.2)
[2019-04-23 17:07] LABS: URINE LEUK ESTERASE SMALL (NEGATIVE)
[2019-04-23 17:11] LABS: BARBITURATES NEGATIVE (NEGATIVE); COCAINE NEGATIVE (NEGATIVE); METHADONE NEGATIVE (NEGATIVE); OXCYCODONE NEGATIVE (NEGATIVE); TETRAHYDROCANNABIONOL NEGATIVE (NEGATIVE); TRICYLIC ANTIDEPRESSANTS NEGATIVE (NEGATIVE)
[2019-04-23 17:17] LABS: URINE BACTERIA MANY hpf; URINE SQUAMOUS EPITHELIAL CELL FEW EPI/hpf (0-FEW)
[2019-04-23] MEDS ORDERED: BACTRIM DS1 TAB PO (17:42)
[2019-04-23 19:00] VITALS: BP 133/79
[2019-04-24] MEDS ORDERED: BACTRIM DS1 TAB PO (13:00)
== END 2019-04-23 19:10 | disposition home or self-care (01) ==
LOC: ED 15:06
DX: E83.42 Hypomagnesemia (principal); N39.0 Urinary tract infection, site not specified; E11.9 Type 2 diabetes mellitus without complications; I10 Essential (primary) hypertension; F17.200 Nicotine dependence, unspecified, uncomplicated; B96.20 Unspecified Escherichia coli [E. coli] as the cause of diseases classified elsewhere; Z86.73 Personal history of transient ischemic attack (TIA), and cerebral infarction without residual deficits; Z79.4 Long term (current) use of insulin
CPT/HCPCS: J3475

== ENCOUNTER 2019-04-26 15:44 | Observation (INO) | payer OTHER ==
[~2019-04-26] VITALS: Ht 154.9 cm; Wt 70.0 kg
[~2019-04-26 15:44] MED LIST changes: +LOSARTAN POTASS1 TA4 PO
--- NOTE | 2019-04-26 16:08 | NUR ---
PT AMBULATED TO ER8 WITH DAUGHTER USING STEADY GAIT.
--- NOTE | 2019-04-26 16:40 | NUR ---
PT DENIES ANY CHEST PAIN AT THIS TIME, NO VOMITING, NO SOB, JUST STATES IS WEAK FEELING.
--- NOTE | 2019-04-26 17:18 | NUR ---
PT REMAINS CHEST PAIN FREE, RESTING QUIETLY ON STRETCHER, VSS STABLE
[2019-04-26 17:27] LABS: HEMATOCRIT 37.8 % (37.0-47.0); HEMOGLOBIN 12.9 g/dl (12.0-16.0); IMMATURE GRANULOCYTES 0.4 % (0.0-5.0); MEAN CORPUSCULAR HGB CONC 34.1 g/L CALC (32.0-36.0); NEUT# 3.28 thou/uL (2.00-7.15); RED BLOOD COUNT 4.61 mill/uL (4.20-5.60); RED CELL DISTRI WIDTH 12.5 % (11.5-15.5)
[2019-04-26 17:44] LABS: ALBUMIN 4.6 g/dL (3.2-5.0); ALKALINE PHOSPHATASE 133 u/l (38-126); ANION GAP 16 (6-22 (CALC)); BILIRUBIN, TOTAL 0.4 mg/dL (0.0-1.4); BUN 21 mg/dL (7-17); BUN/CREATININE RATIO 22 (12-20 (CALC)); CARBON DIOXIDE 27 mmol/l (22-30); CHLORIDE 102 mmol/l (95-108); CREATININE 0.9 mg/dL (0.5-1.0); GFR > 60 ML/MIN (>=60 (CALC)); GFR FOR AFR.AMER. > 60 ML/MIN (>=60 (CALC)); POTASSIUM 3.9 mmol/l (3.5-5.1); SGOT/AST 34 u/l (14-36); SODIUM 141 mmol/l (137-146); TOTAL PROTEIN 8.9 g/dL (6.3-8.2)
[2019-04-26 18:16] LABS: TSH, 3RD GENERATION 0.94 uIU/mL (0.47 - 4.68)
--- NOTE | 2019-04-26 18:22 | NUR ---
PT STATES DOESNT FEEL URGE TO URINATE YET, DOES NOT WANT CATHED FOR SPECIMEN. PT RESTING QUIETLY ON STRETCHER WATCHING TV. PT DENIES ANY CHEST PAIN, STATES HAS A HEADACHE AND THAT IS ALL. VSS.
--- NOTE | 2019-04-26 18:50 | NUR ---
RECEIVED REPORT, IN ROOM INTRODUCED SELF TO PT. NO C/O AT THIS TIME. FAMILY MEMBER AT SIDE.
--- NOTE | 2019-04-26 19:02 | NUR ---
PO ASA GIVEN PER MD ORDER.
--- NOTE | 2019-04-26 19:51 | NUR ---
REPORT TO EULOGIO PEREZ, TAKING PT. TO MS FLOOR VIA W/C.
[2019-04-26 20:00] VITALS: BP 141/79
[2019-04-26 20:05] VITALS: BP 133/81
[2019-04-26 20:10] VITALS: BP 111/66
--- NOTE | 2019-04-26 20:30 | NUR ---
PT. ARRIVED TO THE FLOOR VIA W/C ACCOMPANIED BY THIS BUSINESS DEVELOPMENT ASSISTANT AND DAUGHTER. ADMISSION ASSESSMENT COMPLETED. IV SITE PATENT TO RAC AND SL. PT. EDUCATED ON POC, CALL LIGHT, AND ROOM; VERBALIZES UNDERSTANDING. DAUGHTER ABLE TO ANSWER PMH QUESTIONS FOR PT.. PT. IS A/A/O X3; PT. REPORTS WEAKNESS X1 WEEK AND FALLING AT HOME THIS PAST THURSDAY R/T DIZZINESS AND ALSO REPORTS EARLIER IN DAY AT HOME HAD AN EPISODE OF CHEST PAIN, BUT DENIES ANY NOW; PT. IS ADVISED TO CALL FOR ALL OOB NEEDS AND VERBALIZES UNDERSTANDING. ORTHOSTATICS OBTAINED; SEE INTERVENTION. TELEMETRY IN PLACE AND PER ER READING SR. UA OBTAINED PER ORDER. KAJAL HOSE APPLIED TO BLE AND NON-SKID SOCKS.MULTIPLE SMALL SCATTERED SCRATCHES NOTED GENERALIZED; LARGER ONES NOTED TO RIGHT POSTERIOR SHOULDER; INTACT.ACCUCHECK OBTAINED AND SNACK PROVIDED. DENIES FURTHER NEEDS. CALL LIGHT IS IN REACH. WILL CONTINUE TO MONITOR.
[2019-04-26 21:10] LABS: URINE BILIRUBIN - DIPSTICK NEGATIVE (NEGATIVE); URINE BLOOD DIPSTICK NEGATIVE (NEGATIVE); URINE COLOR YELLOW; URINE GLUCOSE - DIPSTICK NEGATIVE (NEGATIVE); URINE KETONE NEGATIVE (NEGATIVE); URINE LEUK ESTERASE TRACE (NEGATIVE); URINE NITRITE - DIPSTICK NEGATIVE (Negative); URINE PROTEIN - DIPSTICK NEGATIVE (NEG-TRACE); URINE UROBILINOGEN - DIPSTICK 0.2 E.U./dL (0.2)
--- NOTE | 2019-04-26 22:30 | NUR ---
RESTING IN BED WITH NO DISTRESS NOTED;DENIES NEEDS; CALL LIGHT IS IN REACH.
[2019-04-26 23:56] VITALS: BP 112/64
--- NOTE | 2019-04-26 23:57 | NUR ---
RESTING IN BED WITH NO DISTRESS NOTED; DENIES NEEDS/PAIN. VSS. TELEMETRY IN PLACE. ENCOURAGED TO CALL FOR ANY NEEDS. CALL LIGHT IS IN REACH.
--- NOTE | 2019-04-27 00:59 | NUR ---
SUPERVISOR PARKING LOT IN AT BEDSIDE OBTAINING LAB DRAW.
--- NOTE | 2019-04-27 02:11 | NUR ---
ASSISTED TO THE BATHROOM AND BACK TO BED. PT. WITH SLIGHTLY UNSTEADY GAIT. VOIDED 500MLS OF URINE. CALL LIGHT IS IN REACH. DENIES FURTHER NEEDS.
[2019-04-27 04:29] VITALS: BP 100/59
--- NOTE | 2019-04-27 04:29 | NUR ---
VSS; NO DISTRESS NOTED; DENIES NEEDS/PAIN. VOICES NO CONCERNS. CALL LIGHT IS IN REACH. WILL CONTINUE TO MONITOR.
--- NOTE | 2019-04-27 06:09 | NUR ---
NEW BAG OF ORDERED IVF HUNG; DENIES NEEDS AND VOICES NO CONCERNS. CALL LIGHT IS IN REACH.
[2019-04-27 06:33] LABS: HEMATOCRIT 35.8 % (37.0-47.0); HEMOGLOBIN 12.1 g/dl (12.0-16.0); IMMATURE GRANULOCYTES 0.2 % (0.0-5.0); MEAN CELL VOLUME 82.3 fL CALC (80.0-100.0); MEAN CORPUSCULAR HGB 27.8 pG CALC (26.0-32.0); MEAN CORPUSCULAR HGB CONC 33.8 g/L CALC (32.0-36.0); NEUT# 2.36 thou/uL (2.00-7.15); RED BLOOD COUNT 4.35 mill/uL (4.20-5.60); RED CELL DISTRI WIDTH 12.3 % (11.5-15.5)
[2019-04-27 06:45] LABS: ANION GAP 12 (6-22 (CALC)); BUN 19 mg/dL (7-17); BUN/CREATININE RATIO 30 (12-20 (CALC)); CARBON DIOXIDE 24 mmol/l (22-30); CHLORIDE 105 mmol/l (95-108); CREATININE 0.6 mg/dL (0.5-1.0); GFR > 60 ML/MIN (>=60 (CALC)); GFR FOR AFR.AMER. > 60 ML/MIN (>=60 (CALC)); MAGNESIUM 1.3 mg/dL (1.6-2.3); SODIUM 136 mmol/l (137-146)
[2019-04-27 06:47] LABS: POTASSIUM 4.7 mmol/l (3.5-5.1)
[2019-04-27 07:47] VITALS: BP 125/66
--- NOTE | 2019-04-27 08:00 | NUR ---
PT SEEN RESTING IN THE BED, NO DISTRESS, NO COMPLAINTS OF CHEST PAIN, SHORTNESS OF BREATH, OR WEAKNESS. LUNGS WITH SLIGHT CRACKLES TO LEFT LOWER LOBE, RA. PT AMBULATORY IN ROOM, FAMILY AT BEDSIDE FREQUENTLY.
--- NOTE | 2019-04-27 12:00 | NUR ---
PT REMAINS BEFORE, NO CHANGE IN STATUS. PT IS RECEIVING MAGNESIUM PER IV ORDERED.
[2019-04-27 15:53] VITALS: BP 131/74
--- NOTE | 2019-04-27 16:00 | NUR ---
PT HAS BEEN READIED FOR DISCHARGE, NOW WAITING FOR FAMILY TO RETURN. SHE DOES NOT KNOW PHONE MUNBERS TO SUMMON THEM. NO CHANGE IN STATUS, NO COMPLAINT OF CHEST PAIN OR WEAKNESS.
--- NOTE | 2019-04-27 17:59 | NUR ---
PT'S FAMILY HAS ARRIVED TO TAKE PT HOME. DAUGHTER VERBALIZES UNDERSTANDING OF DC INSTRUCTIONS, PT TAKEN BY WHEELCHAIR TO VEHICLE.
== END 2019-04-27 17:53 | disposition home or self-care (01) ==
LOC: ED 15:44 → ED-I 18:19 → ED 18:27 → MS2 18:37
PROVIDERS: Family Medicine; ADMIT Internal Medicine; ATTEND Internal Medicine
DX: R07.9 Chest pain, unspecified (principal); F32.9 Major depressive disorder, single episode, unspecified; E11.65 Type 2 diabetes mellitus with hyperglycemia; I10 Essential (primary) hypertension; E78.5 Hyperlipidemia, unspecified; E83.42 Hypomagnesemia; F41.9 Anxiety disorder, unspecified; R51 Headache; Z86.73 Personal history of transient ischemic attack (TIA), and cerebral infarction without residual deficits; Z79.4 Long term (current) use of insulin; Z23 Encounter for immunization
CPT/HCPCS: G0378; J1650; J3475

== ENCOUNTER 2019-05-29 20:25 | Inpatient (IN) | payer OTHER ==
[~2019-05-29] VITALS: Ht 154.9 cm; Wt 75.9 kg
[2019-05-29 21:34] LABS: HEMATOCRIT 35.6 % (37.0-47.0); HEMOGLOBIN 12.2 g/dl (12.0-16.0); IMMATURE GRANULOCYTES 0.7 % (0.0-5.0); MEAN CELL VOLUME 82.8 fL CALC (80.0-100.0); MEAN CORPUSCULAR HGB 28.4 pG CALC (26.0-32.0); MEAN CORPUSCULAR HGB CONC 34.3 g/L CALC (32.0-36.0); NEUT# 0.85 thou/uL (2.00-7.15); RED BLOOD COUNT 4.3 mill/uL (4.20-5.60); RED CELL DISTRI WIDTH 12.6 % (11.5-15.5)
[2019-05-29 21:48] LABS: AMYLASE 38 u/l (30-110); ANION GAP 21 (6-22 (CALC)); BUN 23 mg/dL (7-17); BUN/CREATININE RATIO 26 (12-20 (CALC)); CARBON DIOXIDE 22 mmol/l (22-30); CHLORIDE 95 mmol/l (95-108); CREATININE 0.9 mg/dL (0.5-1.0); GFR > 60 ML/MIN (>=60 (CALC)); GFR FOR AFR.AMER. > 60 ML/MIN (>=60 (CALC)); LIPASE 125 u/l (23-300); POTASSIUM 4.3 mmol/l (3.5-5.1); SGOT/AST 57 u/l (14-36); SODIUM 135 mmol/l (137-146); TOTAL PROTEIN 8.3 g/dL (6.3-8.2)
[2019-05-29 21:55] LABS: ALKALINE PHOSPHATASE 380 u/l (38-126); BILIRUBIN, TOTAL 0.6 mg/dL (0.0-1.4)
[2019-05-29 22:31] LABS: ACT PARTIAL THROMBO TIME 22.9 SECONDS (20.0-32.5); INTERNATIONAL NORMALIZED RATIO 0.9 RATIO (0.7-1.3); PROTHROMBIN TIME 9.3 SECONDS (9.0-12.5)
[2019-05-29 23:40] LABS: URINE BILIRUBIN - DIPSTICK NEGATIVE (NEGATIVE); URINE BLOOD DIPSTICK TRACE-INTACT (NEGATIVE); URINE COLOR YELLOW; URINE GLUCOSE - DIPSTICK >=1000 mg/dL (NEGATIVE); URINE KETONE NEGATIVE (NEGATIVE); URINE LEUK ESTERASE NEGATIVE (NEGATIVE); URINE NITRITE - DIPSTICK NEGATIVE (Negative); URINE PH 5.5 (4.5-8.0); URINE PROTEIN - DIPSTICK 30 mg/dL (NEG-TRACE); URINE UROBILINOGEN - DIPSTICK 0.2 E.U./dL (0.2)
[2019-05-29 23:44] LABS: C. DIFFICILE TOXIN A&B NEGATIVE (NEGATIVE)
[2019-05-29 23:50] LABS: URINE BACTERIA MODERATE hpf; URINE EPITHELIAL CELLS FEW EPI/hpf (0-FEW); URINE YEAST MODERATE hpf
[2019-05-30] VITALS (15 sets, daily range): BP systolic 109–150; BP diastolic 55–85
[2019-05-30 06:50] LABS: ALKALINE PHOSPHATASE 274 u/l (38-126); ANION GAP 15 (6-22 (CALC)); BILIRUBIN, TOTAL 0.4 mg/dL (0.0-1.4); BUN 20 mg/dL (7-17); BUN/CREATININE RATIO 32 (12-20 (CALC)); CARBON DIOXIDE 21 mmol/l (22-30); CHLORIDE 104 mmol/l (95-108); CREATININE 0.6 mg/dL (0.5-1.0); GFR > 60 ML/MIN (>=60 (CALC)); GFR FOR AFR.AMER. > 60 ML/MIN (>=60 (CALC)); POTASSIUM 4.3 mmol/l (3.5-5.1); SGOT/AST 56 u/l (14-36); SODIUM 136 mmol/l (137-146)
[2019-05-30 06:53] LABS: HEMATOCRIT 30.1 % (37.0-47.0); HEMOGLOBIN 10.3 g/dl (12.0-16.0); IMMATURE GRANULOCYTES 2.5 % (0.0-5.0); MEAN CELL VOLUME 81.8 fL CALC (80.0-100.0); MEAN CORPUSCULAR HGB CONC 34.2 g/L CALC (32.0-36.0); NEUT# 8.03 thou/uL (2.00-7.15); RED BLOOD COUNT 3.68 mill/uL (4.20-5.60); RED CELL DISTRI WIDTH 12.9 % (11.5-15.5)
[2019-05-30 07:06] LABS: ALBUMIN 2.8 g/dL (3.2-5.0)
[2019-05-31] VITALS (7 sets, daily range): BP systolic 103–178; BP diastolic 47–86
[2019-05-31 07:01] LABS: ALBUMIN 2.7 g/dL (3.2-5.0); ALKALINE PHOSPHATASE 193 u/l (38-126); ANION GAP 12 (6-22 (CALC)); BILIRUBIN, TOTAL 0.5 mg/dL (0.0-1.4); BUN 9 mg/dL (7-17); BUN/CREATININE RATIO 18 (12-20 (CALC)); CALCULATED LDLCHOLESTEROL 55 mg/dL (62-129 (CALC)); CARBON DIOXIDE 22 mmol/l (22-30); CHLORIDE 108 mmol/l (95-108); CHOLESTEROL HDL RATIO 10.2 (<4.4 (CALC)); CREATININE 0.5 mg/dL (0.5-1.0); GFR > 60 ML/MIN (>=60 (CALC)); GFR FOR AFR.AMER. > 60 ML/MIN (>=60 (CALC)); HDL CHOLESTEROL 12 mg/dL (>=40); SGOT/AST 37 u/l (14-36); SODIUM 138 mmol/l (137-146); TOTAL CHOLESTEROL 119 mg/dl (0-199); TOTAL TRIGLYCERIDES 264 mg/dl (30-149); VLDL CHOLESTROL 53 mg/dl (2-49 (CALC))
[2019-05-31] MEDS ORDERED: TRICOR145 MG PO (14:26)
[2019-05-31] MEDS ORDERED: ATORVASTATIN CA40 MG PO (14:27)
[2019-05-31] MEDS ORDERED: HYZAAR1 TAB PO (14:28)
[2019-05-31] MEDS ORDERED: METFORMIN500 M2 PO (14:29)
[2019-05-31] MEDS ORDERED: LEVEMIR100 UNIT/M SC (14:31)
[2019-05-31] MEDS ORDERED: NOVOLOG100 UNIT/M SC (14:31)
[2019-05-31] MEDS ORDERED: SERTRALINE50 MG PO (14:34)
[2019-06-01] VITALS: BP 119/65
[2019-06-01 04:00] VITALS: BP 122/76
[2019-06-01 05:37] LABS: HEMATOCRIT 26.5 % (37.0-47.0); HEMOGLOBIN 8.7 g/dl (12.0-16.0); MEAN CELL VOLUME 84.9 fL CALC (80.0-100.0); MEAN CORPUSCULAR HGB 27.9 pG CALC (26.0-32.0); MEAN CORPUSCULAR HGB CONC 32.8 g/L CALC (32.0-36.0); RED BLOOD COUNT 3.12 mill/uL (4.20-5.60); RED CELL DISTRI WIDTH 12.9 % (11.5-15.5)
[2019-06-01 05:59] LABS: ANION GAP 13 (6-22 (CALC)); BUN 9 mg/dL (7-17); BUN/CREATININE RATIO 16 (12-20 (CALC)); CARBON DIOXIDE 24 mmol/l (22-30); CHLORIDE 105 mmol/l (95-108); CREATININE 0.6 mg/dL (0.5-1.0); GFR > 60 ML/MIN (>=60 (CALC)); GFR FOR AFR.AMER. > 60 ML/MIN (>=60 (CALC)); MAGNESIUM 1.4 mg/dL (1.6-2.3); POTASSIUM 3.5 mmol/l (3.5-5.1); SODIUM 139 mmol/l (137-146)
[2019-06-01 15:50] VITALS: BP 172/83
[2019-06-01 16:30] VITALS: BP 160/82
[2019-06-01 19:26] VITALS: BP 154/89
[2019-06-02 05:48] VITALS: BP 150/79
[2019-06-02 08:06] VITALS: BP 185/89
[2019-06-02 08:20] LABS: HEMOGLOBIN 9.6 g/dl (12.0-16.0); MEAN CELL VOLUME 84.1 fL CALC (80.0-100.0); MEAN CORPUSCULAR HGB 27.8 pG CALC (26.0-32.0); MEAN CORPUSCULAR HGB CONC 33.1 g/L CALC (32.0-36.0); RED BLOOD COUNT 3.45 mill/uL (4.20-5.60); RED CELL DISTRI WIDTH 12.8 % (11.5-15.5)
[2019-06-02] MEDS ORDERED: AMLODIPINE BESYL5 MG PO (12:24)
[2019-06-02] MEDS ORDERED: ROCEPHIN1 G1 IV (12:24)
[2019-06-02 12:43] VITALS: BP 162/75
[2019-06-02 15:51] VITALS: BP 181/79
== END 2019-06-02 18:20 | disposition home or self-care (01) | DRG 690 ==
LOC: ED 20:25 → ED-I 21:57 → ED 05-30 00:41 → ICU 05-30 00:42 → MS2 05-30 00:42
PROVIDERS: Emergency Medicine; Internal Medicine; ADMIT Internal Medicine; ATTEND Internal Medicine
DX: N10 Acute pyelonephritis (principal); E87.2 Acidosis; R78.81 Bacteremia; I10 Essential (primary) hypertension; E11.65 Type 2 diabetes mellitus with hyperglycemia; E78.5 Hyperlipidemia, unspecified; F32.9 Major depressive disorder, single episode, unspecified; F41.9 Anxiety disorder, unspecified; D70.3 Neutropenia due to infection; R07.9 Chest pain, unspecified; B96.1 Klebsiella pneumoniae [K. pneumoniae] as the cause of diseases classified elsewhere; D63.8 Anemia in other chronic diseases classified elsewhere; Z79.4 Long term (current) use of insulin
CPT/HCPCS: J3475; Q9967

== ENCOUNTER 2019-11-05 14:28 | Inpatient (IN) | payer OTHER ==
[~2019-11-05] VITALS: Ht 154.9 cm; Wt 72.0 kg
[~2019-11-05 14:28] MED LIST changes: +HYZAAR1 TAB PO; +ROCEPHIN1 G1 IV; +SERTRALINE50 MG PO
--- NOTE | 2019-11-05 15:05 | NUR ---
PT SWABBED FOR COVID 19
[2019-11-05 15:27] LABS: IMMATURE GRANULOCYTES 0.1 % (0.0-5.0); MEAN CELL VOLUME 82.3 fL CALC (80.0-100.0); MEAN CORPUSCULAR HGB 27.2 pG CALC (26.0-32.0); MEAN CORPUSCULAR HGB CONC 33.1 g/dL CAL (32.0-36.0); NEUT# 5.54 thou/uL (2.00-7.15); RED BLOOD COUNT 4.81 mill/uL (4.20-5.60); RED CELL DISTRI WIDTH 13.5 % (11.5-15.5)
[2019-11-05 15:29] LABS: GFR > 60 ML/MIN (>=60 (CALC)); GFR FOR AFR.AMER. > 60 ML/MIN (>=60 (CALC))
[2019-11-05 15:29] LABS: HEMATOCRIT 39.6 % (37.0-47.0); HEMOGLOBIN 13.1 g/dl (12.0-16.0)
[2019-11-05 15:35] LABS: URINE BILIRUBIN - DIPSTICK NEGATIVE (NEGATIVE); URINE BLOOD DIPSTICK TRACE-INTACT (NEGATIVE); URINE COLOR YELLOW; URINE GLUCOSE - DIPSTICK NEGATIVE (NEGATIVE); URINE KETONE NEGATIVE (NEGATIVE); URINE PROTEIN - DIPSTICK TRACE mg/dL (NEG-TRACE)
[2019-11-05 15:36] LABS: URINE LEUK ESTERASE SMALL (NEGATIVE); URINE NITRITE - DIPSTICK POSITIVE (Negative)
[2019-11-05 15:44] LABS: URINE BACTERIA MANY hpf; URINE SQUAMOUS EPITHELIAL CELL FEW EPI/hpf (0-FEW); URINE WBC 20-50 WBC/hpf (0-5)
[2019-11-05 15:46] LABS: ALKALINE PHOSPHATASE 176 u/l (38-126); BILIRUBIN, TOTAL 0.7 mg/dL (0.0-1.4); BUN 18 mg/dL (7-17); BUN/CREATININE RATIO 29 (12-20 (CALC)); CHLORIDE 96 mmol/l (95-108); CREATININE 0.6 mg/dL (0.5-1.0); GFR > 60 ML/MIN (>=60 (CALC)); GFR FOR AFR.AMER. > 60 ML/MIN (>=60 (CALC)); LIPASE 49 u/l (23-300); SGOT/AST 29 u/l (14-36); SODIUM 136 mmol/l (137-146)
[2019-11-05 15:48] LABS: ALBUMIN 4.4 g/dL (3.2-5.0); ANION GAP 14 (6-22 (CALC)); CARBON DIOXIDE 31 mmol/l (22-30); POTASSIUM 4.6 mmol/l (3.5-5.1); TOTAL PROTEIN 8.6 g/dL (6.3-8.2)
--- NOTE | 2019-11-05 16:00 | NUR ---
PT PRESENTS WITH ABD PAIN AND FEVER OF 102 F RECTAL. PT STATES FEELING A HEADACHE TWO DAYS AGO AND HAVING FEVER. DIMINISHED SOUND HEARD IN RIGHT LOWER LOBE. PAIN 9/10 IN ABD GENERALIZED. PT STATES HAVING REGULAR BM. HER WAS TESTED COVID 19 POSITIVE. SHE IS CONCERNED OF JEFFRY VIRUS. WILL CONTINUE TO [facility].
--- NOTE | 2019-11-05 17:00 | NUR ---
PT RESTING WATCHING TV WITH FLUIDS AND ANTIBIOTICS INFUSING. CALL LIGHT WITHIN REACH. PT ADVISED OF WAIT AND DENIES ANY NEEDS AT THIS POINT.
[2019-11-05] MEDS ORDERED: SERTRALINE100 MG PO (17:43)
[2019-11-05] MEDS ORDERED: LOSARTAN POTAS100 MG PO (17:45)
[2019-11-05] MEDS ORDERED: HYDROCHLOROT12.5 M1 PO (17:45)
[2019-11-05] MEDS ORDERED: FERR SULFATE325 MG PO (17:45)
[2019-11-05 17:54] LABS: C-REACTIVE PROTEIN 2.7 mg/dL (0-0.9)
--- NOTE | 2019-11-05 18:00 | NUR ---
PT MADE AWARE OF PENDING ADMISSION. PT VERBALIZED UNDERSTANDING.
--- NOTE | 2019-11-05 18:36 | NUR ---
GAVE REPORT TO RENE
--- NOTE | 2019-11-05 18:40 | NUR ---
PT TRANSPORTED TO [facility] SURG STABLE AND IN NO DISTRESS. CARE ASSUMED TO RENE Admission Note Report Given to: Transported by: Wheelchair X Stretcher Transported with: X Nurse Transporter X Patent IV O2 X Ordnance Artificer Helper Location: ICU X MS2
[2019-11-05 18:42] VITALS: BP 140/71
--- NOTE | 2019-11-05 20:00 | NUR ---
PATIENT ADMITTED FROM ER VIA STRETCHER WITH ER STAFF IN ATTENDANCE. PATIENT ADMITTED FOR UTI. PATIENT IS AWAKE ALERT AND ORIENTEDX3-UKRAINIAN SPEAKING ONLY. ORLANDO LOZANO HERE FOR TRANSLATION. PATIENT ON ISOLATION FOR CORVID 19 SWAB. PATIENT WAS DX WITH COVID 19 PREVIOUSLY. PATIENT WAS FEBRILE IN ER. AFEBRILE AT THIS TIME. TELE MONITOR IN PLACE. IV SITE TO RAC INTACT-NS HUNG AND INFUSING AT 100CC/HR. SITE IS HEALTHY. PATIENT ORIENTED TO ROOM AND SURROUNDING. INSTRUCTED PATIENT ON USE OF NURSE CALLIGHT, TV REMOTE AND PHONE. PROVIDED AND ENCOURAGED PATIENT TO TAKE PO FLUIDS FOR UTI. PATIENT WITH HX OF CVA AND HAS LEFT SIDED WEAKNESS. SAFETY PRECAUTIONS REINFORCED. CALL LIGHT IN REACH. WILL CONT TO MONITOR.
--- NOTE | 2019-11-05 22:45 | NUR ---
BS-284. COVERED WITH 3UNITS OF NOVALOG PER SLIDING SCALE COVERAGE PROTOCOL. PATIENT MEDICATED WITH MOM 30CC-PATIENT STATES NO BM FOR SEVERAL DAYS(5 DAYS). ABD IS SOFT WITH BS PRESENT. TELE IN PLACE. IVF PATENT AT 100CC/HR VIA [facility] SITE. SAFETY PRECAUTIONS REINFORCED. CALL LIGHT IN REACH. WILL CONT TO MONITOR.
[2019-11-05 23:55] VITALS: BP 134/74
[2019-11-06] VITALS (7 sets, daily range): BP systolic 108–168; BP diastolic 57–88
--- NOTE | 2019-11-06 01:33 | NUR ---
PATIENT APPEARS SLEEPING WITH EYES CLOSED AND RESP EVEN AND UNLABORED. CALL LIGHT IN REACH. WILL CONT TO MONITOR.
--- NOTE | 2019-11-06 05:09 | NUR ---
PATIENT UP TO THE BR FOR BM AND THEN BACK TO BED. IVF PATENT AND INFUSING VIA RIGHT AC SITE. TELE MONITOR IN PLACE. PATIENT REMAINS ON ISOLATION IN NEG PRESSURE ROOM AWAITING FOR COVID SWAB RESULTS. CALL LIGHT IN REACH. WILL CONT TO MONITOR.
--- NOTE | 2019-11-06 05:59 | NUR ---
PATIENT RESTING IN BED AT THIS TIME. NS HUNG AND INFUSING AT 100CC/HR. SITE IS HEALTHY. PATIENT INCONT OF MODERATE AMT OF LOOSE BROWN STOOL. WILL ASSIST PATIENT WITH PERSONAL CARE AND LINEN CHANGE. CALL LIGHT IN REACH. WILL CONT TO MONITOR.
--- NOTE | 2019-11-06 08:24 | NUR ---
PT SITTING ON BSC, PT HAD LARGE BM, NOTED LINENS AND GOWN SOILED, FLOOR WELL. PT ALSO C/O NAUSEA, EMESIS BAG GIVEN. TOLL MECHANIC NOTIFIED AND ZOFRAN ORDERED. DISCUSSED POC WITH PT, VITALS OBTAINED. ASSESSMENT COMPLETED, NEW LINENS AND GOWN PROVIDED. CALL LIGHT IN REACH,CONTINUE TO MONITOR.
--- NOTE | 2019-11-06 12:00 | NUR ---
PT SITTING ON SIDE OF BED, PT MEDICATED PER AUG. PT HAD ANOTHER BM, NEW GOWN PROVIDED. LUNCH PROVIDED. CALL LIGHT IN REACH,CONTINUE TO MONITOR.
--- NOTE | 2019-11-06 16:29 | NUR ---
MD NOTIFIED OF ELEVATED BP, NEW ORDERS RECEIVED. CALL LIGHT IN REACH,CONTINUE TO MONITOR.
--- NOTE | 2019-11-06 17:10 | NUR ---
LABETALOL 10MG ADMINISTERED VIA IV FOR BP OF 168/88; HEART 105. RATER ASSOCIATE WILL CONTINUE TO MONITOR.
--- NOTE | 2019-11-06 17:12 | NUR ---
RN AT BEDSIDE GIVING LABETALOL IV, DISCUSSED WITH PT, VERBALIZED UNDERSTANDING. CALL LIGHT IN REACH,CONTINUE TO MONITOR.
--- NOTE | 2019-11-06 20:45 | NUR ---
PATIENT RESTING IN BED AT THIS TIME ON ISOLATION IN NEG PRESSURE ROOM FOR PENDING COVID SWAB. AWAKE ALERT AND ORIENTEDX3. LITHUANIAN SPEAKING ONLY. NO MORE DIARREA TONIGHT. NANDA SKILLED NURSING FACILITIES PROFESSIONAL ABLE TO TRANSLATE AT BEDSIDE. [id number] WITH LEVEMIR 75UNIT SQ AND WITH NOVALOG 4UNITS PER SLIDING SCALE COVERAGE PROTOCOL. TELE MONITOR IN PLACE. NS PATENT AND INFUSING VIA RIGHT AC IV SITE AT KVO RATE. SITE IS HEALTHY AT THIS TIME. SAFETY PRECAUTIONS REINFORCED. CALL LIGHT IN REACH. WILL CONT TO MONITOR.
--- NOTE | 2019-11-07 00:53 | NUR ---
PATIENT RESTING IN BED WITH EYES CLOSED. RESPS ARE EVEN AND UNLABORED. TELE MONITOR IN PLACE. IVF PATENT AND INFUSING AT KVO RATE VIA RIGHT AC SITE. CALL LIGHT IN REACH. WILL CONT TO MONITOR.
[2019-11-07 03:35] VITALS: BP 106/52
--- NOTE | 2019-11-07 04:25 | NUR ---
PATIENT RESTING IN BED ON ISOLATION IN NEG PRESSURE ROOM. PATIENT HAS STARTED WITH LOOSE STOOLS-SMALL AMTS X3. BLOOD DRAWN ORDERED LEFT HAND. TELE MONITOR IN PLACE.IVF PATENT AND INFUSING AT KVO RATE VIA RIGHT AC SITE. CALL LIGHT IN REACH. WILL CONT TO MONITOR.
[2019-11-07 04:57] LABS: MEAN CELL VOLUME 84.4 fL CALC (80.0-100.0); MEAN CORPUSCULAR HGB 26.8 pG CALC (26.0-32.0); MEAN CORPUSCULAR HGB CONC 31.8 g/dL CAL (32.0-36.0); RED BLOOD COUNT 3.65 mill/uL (4.20-5.60); RED CELL DISTRI WIDTH 13.5 % (11.5-15.5)
[2019-11-07 05:01] LABS: HEMATOCRIT 30.8 % (37.0-47.0); HEMOGLOBIN 9.8 g/dl (12.0-16.0)
[2019-11-07 05:07] LABS: ALKALINE PHOSPHATASE 160 u/l (38-126); ANION GAP 10 (6-22 (CALC)); BUN 21 mg/dL (7-17); BUN/CREATININE RATIO 27 (12-20 (CALC)); CARBON DIOXIDE 26 mmol/l (22-30); CHLORIDE 103 mmol/l (95-108); CREATININE 0.8 mg/dL (0.5-1.0); GFR > 60 ML/MIN (>=60 (CALC)); GFR FOR AFR.AMER. > 60 ML/MIN (>=60 (CALC)); POTASSIUM 4.2 mmol/l (3.5-5.1); SGOT/AST 32 u/l (14-36); SODIUM 135 mmol/l (137-146)
[2019-11-07 05:08] LABS: ALBUMIN 3.2 g/dL (3.2-5.0); BILIRUBIN, TOTAL 0.3 mg/dL (0.0-1.4); TOTAL PROTEIN 6.4 g/dL (6.3-8.2)
[2019-11-07 07:49] VITALS: BP 110/52
--- NOTE | 2019-11-07 08:31 | NUR ---
PT SEEN AWAKE, ALERT, ORIENTED X 3. LUNGS CLEAR,RA. PT DID HAVE DIARRHEA THIS MORNING. SLIGHTLY ELEVATED TEMP AT 99.1. NO DISTRESS, NO COMPLAINTS. PT HAS EATEN BREAKFAST AND SHOWERED.
[2019-11-07 11:03] VITALS: BP 152/75
--- NOTE | 2019-11-07 14:13 | NUR ---
PT WITH NEW ABX PROVIDED EARLIER TODAY. NO ADVERSE REACTION NOTED. PT AT REST IN THE BED, NO DISTRESS NOTED.
[2019-11-07 15:20] VITALS: BP 191/82
--- NOTE | 2019-11-07 16:20 | NUR ---
PT PROVIDED MED FOR HEADACHE PAIN. NO DISTRESS NOTED, PT RESTS IN THE BED WITHOUT COMPLAINT.
--- NOTE | 2019-11-07 19:00 | NUR ---
RECEIVED REPORT FROM NURSE SOREN PATIENT WAS RESTING IN BED WITH EYES CLOSED, DENIES PAIN OR DISCOMFORTS AT THIS TIME CALL LIGHT AT REACH
[2019-11-07 19:47] VITALS: BP 129/68
--- NOTE | 2019-11-07 21:30 | NUR ---
PATIENT ALERT ORIENTED, WITH ONGOING IV NS @ 20CC PER HOUR INFUSING WELL ON RAC, REMAINS ON TELE LBM 11/06, REMAINS ON AIRBORNE/CONTACT PRECAUTION PENDING COVID SWAB, BS 235MG/DL WILL COVER, CALL LIGHT AT REACH.
[2019-11-08] VITALS (7 sets, daily range): BP systolic 105–181; BP diastolic 45–98
--- NOTE | 2019-11-08 | NUR ---
PATIENT APPEARS TO BE SLEEPING WITH EYES CLOSED, WITH EVEN UNLABORED BREATHING CALL LIGHT AT REACH.
--- NOTE | 2019-11-08 04:30 | NUR ---
PATIENT AWAKE AT THIS TIME, DENIES PAIN OR DISCOMFORTS BREATHING EVEN AND UNLABORED, BLOOD FOR LAB OBTAIN AT THIS TIME, CALL LIGHT AT REACH.
[2019-11-08 05:11] LABS: HEMATOCRIT 32.7 % (37.0-47.0); HEMOGLOBIN 10.4 g/dl (12.0-16.0); IMMATURE GRANULOCYTES 0.2 % (0.0-5.0); MEAN CELL VOLUME 85.4 fL CALC (80.0-100.0); MEAN CORPUSCULAR HGB 27.2 pG CALC (26.0-32.0); MEAN CORPUSCULAR HGB CONC 31.8 g/dL CAL (32.0-36.0); NEUT# 2.49 thou/uL (2.00-7.15); RED BLOOD COUNT 3.83 mill/uL (4.20-5.60); RED CELL DISTRI WIDTH 13.3 % (11.5-15.5)
[2019-11-08 05:28] LABS: BUN 15 mg/dL (7-17); BUN/CREATININE RATIO 25 (12-20 (CALC)); CARBON DIOXIDE 26 mmol/l (22-30); CHLORIDE 105 mmol/l (95-108); CREATININE 0.6 mg/dL (0.5-1.0); GFR > 60 ML/MIN (>=60 (CALC)); GFR FOR AFR.AMER. > 60 ML/MIN (>=60 (CALC)); SODIUM 140 mmol/l (137-146)
[2019-11-08 05:30] LABS: ANION GAP 13 (6-22 (CALC)); POTASSIUM 3.9 mmol/l (3.5-5.1)
--- NOTE | 2019-11-08 08:55 | NUR ---
ASSESSMENT IS COMPLETED: IV SITE IS FREE FROM REDNESS OR EDEMA. HR IS REG, PULSES ARE STRONG X4, ABD IS SOFT WITH ACTIVE BS. BREATH SOUNDS ARE CLEAR, BILATERALLY. TELE MONITOR IN PLACE.
--- NOTE | 2019-11-08 09:41 | NUR ---
LABS DRAWN, AND MEDICATION GIVEN. HAD JODI FROM OR INTERPRET OVER THE PHONE TO INQUIRE IF THE PT NEEDS ANYTHING AT THIS TIME. PT TOLD JODI " I AM A LITTLE COLD, NO PAIN. EVERYTHING IS FINE." CONTINUE TO OSEBRVE AND MONITOR.
--- NOTE | 2019-11-08 10:10 | NUR ---
SPOKE WITH DR SHEIKH RE: PT , BEING MEXICAN SPEAKING AND POSITIVE FOR COVID. INQUIRED IF HE COULD REVIEW THE CHART. PER RAFFI BERMAN RECOMMENDATIONS. INFORMED "I NEED TO SEE THE PT".
--- NOTE | 2019-11-08 10:15 | NUR ---
PHONE JODI RAE AND JAROCHO, TO INQUIRE ABOUT INTERPRETING. WILL DO IF ABLE. EXPLAINED THE SITUATION. SPOKE WITH CODY POST SECONDARY PROFESSIONAL. WILL GET THE POST SECONDARY PROFESSIONAL PHONE AND SEE IF THIS WOULD WORK ON SPEAKER.
--- NOTE | 2019-11-08 10:22 | NUR ---
RECEIVED A CRITICAL RESULT ON PT FOR COVID TESTING THROUGH BLOOD IS ALSO POSITIVE BESIDES THE SWAB. INFORMED DR. DAVEY AND RAFFI BERMAN.
[2019-11-08 10:34] LABS: C-REACTIVE PROTEIN 5.9 mg/dL (0-0.9)
--- NOTE | 2019-11-08 10:34 | NUR ---
DR SHEIKH CALLED BACK , INFORMED OF ATTEMPTING TO GET AN BATCH ROLLER OPERATOR. INQUIRED IF "WE COULD TAKE THE PT OUT OF THE ROOM." EXPLAINED UNABLE TO DO THAT. HE WILL PLACE RECOMMENDATIONS IN THE NOTE.
--- NOTE | 2019-11-08 11:30 | NUR ---
SPOKE WITH KYRA BARRERA: THE OUT COME WITH DR SHEIKH. EXPLAINED WHAT HE SAID . AND THAT IF I NEEDED HER I CAN CALL HER,
--- NOTE | 2019-11-08 12:15 | NUR ---
INQUIRED WITH JAROCHO TO INTERPRET THE DINNER MENU FOR TONIGHT. INQUIRED IF PT WOULD LIKE GLUCERNA OR SOMETHING DIFFERENT TO DRINK. STATED" TEA AND WATER WERE FINE".
--- NOTE | 2019-11-08 12:45 | NUR ---
PT IS RELAXING IN BED WITH NO DISTRESS NOTED. IV SITE IS FREE FROM REDNESS OR EDEMA. TELE MONITOR IN PLACE.
--- NOTE | 2019-11-08 14:44 | NUR ---
PT WAS HAVING NAUSEA AND VOMITING. GAVE MEDICATION. ON THE PHONE WITH FAMILY. SPEAKING WITH JODI RE: PT WITH NAUSEA, AND PAIN. JODI INTERPRETED. CONTINUE WITH MEDICATIONS/
--- NOTE | 2019-11-08 15:06 | NUR ---
SPOKE WITH HER DAUGHTER (KENJI- [phone]) INQUIRED IF HER MOM HAS COVID POSITIVE. INFORMED WILL HAVE DR DAVEY CALL AND INFORM OF WHAT IS GOING ON WITH HER MOTHER . SHE STATED:"WE FOUND OUT LAST MORENITA THAT MY FATHER IS POSITIVE."
--- NOTE | 2019-11-08 20:14 | NUR ---
ASSESSMENT COMPLETED. IV SITE PATENT AND INFUSING ORDERED IVF WELL. PT. DENIES NEEDS/PAIN. MEDICATED WITH ORDERED PRN LABETOLOL FOR B/P 164/73; WILL REASSESS ALSO MEDICATED WITH ORDERED SCHEDULED MEDS; TELEMETRY IN PLACE. INSTRUCTED PT. TO CALL FOR ANY NEEDS. CALL LIGHT IS IN REACH. WILL CONTINUE TO MONITOR.
[2019-11-09] VITALS (8 sets, daily range): BP systolic 97–168; BP diastolic 52–81
--- NOTE | 2019-11-09 | NUR ---
RESTING IN BED WITH NO DISTRESS NOTED; DENIES NEEDS. CALL LIGHT IS IN REACH.
--- NOTE | 2019-11-09 01:50 | NUR ---
PT. SITTING UP ON BED WITH NO DISTRESS NOTED; DENIES NEEDS/PAIN. NEW IV STARTED TO RIGHT HAND X2 ATTEMPT. PT. TOLERATED WELL.
--- NOTE | 2019-11-09 04:55 | NUR ---
MINISTER OF RELIGION IN AT BEDSIDE OBTAINING VS. NO DISTRESS NOTED; DENIES NEEDS.
--- NOTE | 2019-11-09 06:04 | NUR ---
PT. RESTING IN BED WITH NO DISTRESS NOTED; DENIES NEEDS/PAIN. PT. HAD A SMALL AMOUNT OF BM ON HER GOWN AND GOWN WAS CHANGED. IV SITE PATENT AND ORDERED IVF INFUSING WELL.
--- NOTE | 2019-11-09 07:10 | NUR ---
REPORT RECEIVED FROM CHRIS KRISHNAN.
--- NOTE | 2019-11-09 08:50 | NUR ---
PT RESTING IN SEMI FOWLERS POSITION TALKING ON THE PHONE,A&O X3;VS OBTAINED AND ASSESSMENT COMPLETED;PT DENIES ANY CURRENT PAIN OR DISCOMFORTS,PAIN SCALE AND REPORTING EDUCATED;RESPIRATIONS EVEN AND UNLABORED ON RA;ABDOMEN DISTENDED/SOFT ON PALPATION AND ACTIVE IN ALL 4 QUADRANTS;WEAK PEDAL PULSES;TELE MONITORING IN PLACE;ACCUCHECK 64, PT ASYMPTOMATIC AND BREAKFAST TRAY PROVIDED;#22G TO RIGHT HAND INFUSING NS @KVO PER ORDER,SITE APPEARS HEALTHY;PT REMAINS UNDER ISOLATION AT THIS TIME DUE TO COVID19 POSITIVE RESULTS,PT VERBALIZES UNDERSTANDING;PT DENIES ANY ADDITIONAL NEEDS AND IS ENCOURAGED TO CALL FOR ASSISTANCE IF NEEDED;CALL LIGHT IN REACH;WILL CONTINUE TO MONITOR
--- NOTE | 2019-11-09 11:25 | NUR ---
PT RESTING IN SEMI FOWLERS POSITION;RESPIRATIONS EVEN AND UNLABORED ON RA;PT DENIES ANY CURRENT PAIN OR DISCOMFORTS;TELE MONITORING IN PLACE;IV FLUIDS INFUSING WITH EASE PER ORDER;ACCUCHECK 96,NO COVERAGE NEEDED;PT REMAINS IN ISOLATION DUE TO TESTING POSITIVE FOR COVID19;PT DENIES ANY ADDITIONAL NEEDS AT THIS TIME;ASSESSMENT REMAINS UNCHANGED;FALL PRECAUTIONS IN PLACE WITH CALL LIGHT IN REACH;WILL CONTINUE TO MONITOR
--- NOTE | 2019-11-09 18:00 | NUR ---
PT RESTING IN SEMI FOWLERS POSITION;RESPIRATIONS EVEN AND UNLABORED ON RA;PT DENIES ANY CURRENT PAIN OR DISCOMFORTS;TELE MONITORING IN PLACE;IV FLUIDS INFUSING WITH EASE PER ORDER;ACCUCHECK 96,NO COVERAGE NEEDED AT THIS TIME;PT ENCOURAGED TO CALL FOR ASSISTANCE IF NEEDED;CALL LIGHT IN REACH;WILL CONTINUE TO MONITOR
--- NOTE | 2019-11-09 20:30 | NUR ---
ASSESSMENT COMPLETED; NO DISTRESS NOTED; UPDATED ON POC. IV SITE PATENT AND INFUSING ORDERED IVF WELL. REASSESSED B/P AND NOW 156/81; WILL CONTINUE TO MONITOR. PT. NOTED WITH BM ON ABDOMEN AND DONYA AREA AND PROVIDED WITH DONYA CARE. WAHSCLOTHS PROVIDED FOR LATER IF THEY ARE NEEDED. PT. ATE SNACK PROVIDED BY HYDROLOGY TECHNICIAN. ENCOURAGED TO CALL FOR ANY NEEDS. CALL LIGHT IS IN REACH.
--- NOTE | 2019-11-09 23:05 | NUR ---
PT. SITTING UP IN BED WITH NO DISTRESS NOTED; DENIES NEEDS/PAIN. VSS. ENCOURAGED TO CALL FOR ANY NEEDS. CALL LIGHT IS IN REACH.
[2019-11-10] VITALS (7 sets, daily range): BP systolic 111–155; BP diastolic 53–79
--- NOTE | 2019-11-10 02:38 | NUR ---
AM LABS OBTAINED. BSC EMPTIED. PT. DENIES NEEDS/PAIN. ENCOURAGED TO CALL FOR ANY NEEDS.
[2019-11-10 02:54] LABS: HEMATOCRIT 29.8 % (37.0-47.0); HEMOGLOBIN 9.8 g/dl (12.0-16.0); MEAN CELL VOLUME 82.8 fL CALC (80.0-100.0); MEAN CORPUSCULAR HGB 27.2 pG CALC (26.0-32.0); MEAN CORPUSCULAR HGB CONC 32.9 g/dL CAL (32.0-36.0); RED BLOOD COUNT 3.6 mill/uL (4.20-5.60); RED CELL DISTRI WIDTH 13.2 % (11.5-15.5)
[2019-11-10 03:18] LABS: ALBUMIN 3.4 g/dL (3.2-5.0); ALKALINE PHOSPHATASE 164 u/l (38-126); ANION GAP 13 (6-22 (CALC)); BILIRUBIN, TOTAL 0.3 mg/dL (0.0-1.4); BUN 12 mg/dL (7-17); BUN/CREATININE RATIO 20 (12-20 (CALC)); C-REACTIVE PROTEIN 4.9 mg/dL (0-0.9); CARBON DIOXIDE 26 mmol/l (22-30); CHLORIDE 101 mmol/l (95-108); CREATININE 0.6 mg/dL (0.5-1.0); GFR > 60 ML/MIN (>=60 (CALC)); GFR FOR AFR.AMER. > 60 ML/MIN (>=60 (CALC)); POTASSIUM 4.3 mmol/l (3.5-5.1); SGOT/AST 27 u/l (14-36); SODIUM 136 mmol/l (137-146); TOTAL PROTEIN 6.8 g/dL (6.3-8.2)
--- NOTE | 2019-11-10 04:05 | NUR ---
MEDICAL VAN DRIVER IN AT BEDSIDE; NO DISTRESS NOTED; DENIES NEEDS. CALL LIGHT IS IN REACH.
--- NOTE | 2019-11-10 07:05 | NUR ---
REPORT RECEIVED FROM CHRIS KRISHNAN.
--- NOTE | 2019-11-10 08:05 | NUR ---
PT RESTING AT BEDSIDE,A&O X3;VS OBTAINED AND ASSESSMENT COMPLETED;PT DENIES ANY CURRENT PAIN OR DISCOMFORTS,PAIN SCALE AND REPORTING EDUCATED;RESPIRATIONS EVEN AND UNLABORED ON RA,CLEAR LUNG SOUNDS;ABDOMEN DISTENDED/SOFT ON PALPATION AND ACTIVE IN ALL 4 QUADRANTS;STRONG PEDAL PULSES;SKIN INTACT;TELE MONITORING IN PLACE;#22G TO RIGHT HAND INFUSING NS @ KVO PER ORDER;ACCUCHECK 136, NO COVERAGE NEEDED;PT REMAINS IN ISOLATION DUE TO POSITIVE COVID19 RESULTS;PT DENIES ANY ADDITIONAL NEEDS AT THIS TIME AND IS ENCOURAGED TO CALL FOR ASSISTANCE IF NEEDED;FALL PRECAUTIONS IN PLACE WITH BED IN THE LOWEST POSITION AND CALL LIGHT IN REACH;WILL CONTINUE TO MONITOR
--- NOTE | 2019-11-10 12:30 | NUR ---
PT RESTING IN SEMI FOWLERS POSITION;RESPIRATIONS EVEN AND UNLABORED ON RA;TELE MONITORING IN PLACE;IV FLUIDS INFUSING WITH EASE;ACCUCHECK 93,NO COVERAGE NEEDED AT THIS TIME;ASSESSMENT REMAINS UNCHANGED AT THIS TIME;ENCOURAGED TO CALL FOR ASSISTANCE IF NEEDED;CALL LIGHT IN REACH;WILL CONTINUE TO MONITOR
--- NOTE | 2019-11-10 17:40 | NUR ---
PT RESTING IN SEMI FOWLERS POSITION;RESPIRATIONS EVEN AND UNLABORED ON RA;PT DENIES ANY CURRENT PAIN OR NEEDS;TELE MONITORING IN PLACE;IV FLUIDS INFUSING WITH EASE PER ORDER;ACCUCHECK 99, NO COVERAGE NEEDED;ENCOURAGED TO CALL FOR ASSISTANCE IF NEEDED;CALL LIGHT IN REACH;WILL CONTINUE TO MONITOR
--- NOTE | 2019-11-10 21:30 | NUR ---
PT SITTING IN BED, NO SIGNS OF DISTRESS NOTED, RESP EVEN AND UNLABORED. PT ALERT AND ORIENTED X3, PERUVIAN SPEAKING ONLY, ORNAMENT SETTER SPEAKS PERUVIAN. DISCUSSED POC, NOTED GOWN WAS SOILED. NEW GOWN PROVIDED, ASSESSMENT COMPLETED. CALL LIGHT IN REACH,CONTINUE TO MONITOR.
[2019-11-11] VITALS (7 sets, daily range): BP systolic 109–150; BP diastolic 62–73
--- NOTE | 2019-11-11 01:33 | NUR ---
PT RESTING IN BED WATCHING TV, NO SIGNS OF DISTRESS NOTED, RESP EVEN AND UNLABORED. PT VOICES NO NEEDS OR COMPLAINTS, IV ANTIBIOTIC INITAITED. CALL LIGHT IN REACH,CONTINUE TO MONITOR.
--- NOTE | 2019-11-11 07:05 | NUR ---
REPORT RECEIVED FROM HELEN BERMAN.
--- NOTE | 2019-11-11 07:55 | NUR ---
PT RESTING IN SEMI FOWLERS POSITION,A&O X3;VS OBTAINED AND ASSESSMENT COMPLETED,BP 132/69 HR 78;PT DENIES ANY CURRENT PAIN OR DISCOMFORTS,PAIN SCALE AND REPORTING EDUCATED;RESPIRATIONS EVEN AND UNLABORED ON RA,CLEAR LUNG SOUNDS;ABDOMEN DISTENDED/SOFT ON PALPATION AND ACTIVE IN ALL 4 QUADRANTS;STRONG PEDAL PULSES;SKIN INTACT;TELE MONITORING IN PLACE;#22G TO RIGHT HAND INFUSING NS @ [facility] PER ORDER,SITE APPEARS HEALTHY;ACCUCHECK WAS INITIALLY 50, ORANGE JUICE WAS PROVIDED;ACCUCHECK RE-CHECK AT THIS TIME 73 AND PT REMAINS ASYMPTOMATIC,BREAKFAST TRAY PROVIDED;PT REMAINS IN ISOLATION DUE TO COVID19 POSITIVE RESULTS AND PT VERBALIZES UNDERSTANDING;PT DENIES ANY ADDITIONAL NEEDS AT THIS TIME AND IS ENCOURAGED TO CALL FOR ASSISTANCE IF NEEDED;FALL PRECAUTIONS IN PLACE WITH BED IN THE LOWEST POSITION AND CALL LIGHT IN REACH;WILL CONTINUE TO MONITOR
--- NOTE | 2019-11-11 11:20 | NUR ---
PT RESTING IN SEMI FOWLERS POSITION;RESPIRATIONS EVEN AND UNLABORED ON RA;PT DENIES ANY CURRENT PAIN OR DISCOMFORTS;TELE MONITORING REMAINS IN PLACE;IV FLUIDS INFUSING WITH EASE;ACCUCHECK 79, PT ENCOURAGED TO INCREASE ORAL INTAKE FOR LUNCH.MARY,KAYLINRP NOTIFIED OF CONTINUOUS LOW BLOOD SUGAR AND NO NEW ORDERS RECEIVED AT THIS TIME;PT REMAINS ASYMPTOMATIC TO HYPOGLYCEMIA;ASSESSMENT REMAINS UNCHANGED AT THIS TIME;ENCOURAGED PT TO CALL FOR ASSISTANCE IF NEEDED;CALL LIGHT IN REACH;WILL CONTINUE TO MONITOR
--- NOTE | 2019-11-11 16:00 | NUR ---
PT RESTING IN SEMI FOWLERS POSITION;RESPIRATIONS REMAIN EVEN AND UNLABORED ON RA;PT DENIES ANY CURRENT PAIN OR DISCOMFORTS;TELE MONITORING IN PLACE;IV FLUIDS INFUSING WITH EASE PER ORDER;PT DENIES ANY CURRENT NEEDS AND IS ENCOURAGED TO CALL FOR ASSISTANCE IF NEEDED;FALL PRECAUTIONS IN PLACE WITH BED IN THE LOWEST POSITION AND CALL LIGHT IN REACH;WILL CONTINUE TO MONITOR
--- NOTE | 2019-11-11 22:00 | NUR ---
PT RESTING IN BED ALERT AND ORIENTED. RESPIRATIONS EVEN AND UNLABORED, LUNGS SOUND DIMINISHED. PEDAL PULSES WEAK. PT DENIES ANY PAIN OR DISCOMFORT AT THIS TIME. SAFETY PRECAUTIONS IN PLACE. WILL CONTINUE TO MONITOR.
--- NOTE | 2019-11-12 01:15 | NUR ---
PT RESTING IN BED. NO S/S OF DISTRESS AT THIS TIME
[2019-11-12 03:50] VITALS: BP 119/60
--- NOTE | 2019-11-12 04:05 | NUR ---
PT RESTING IN BED. TELE IN PLACE. NO S/S OF DISTRESS AT THIS TIME. CALL NELSON WITHIN REACH. WILL CONTINUE TO MONITOR.
[2019-11-12 05:40] LABS: HEMATOCRIT 30.5 % (37.0-47.0); MEAN CELL VOLUME 82.7 fL CALC (80.0-100.0); MEAN CORPUSCULAR HGB 27.1 pG CALC (26.0-32.0); MEAN CORPUSCULAR HGB CONC 32.8 g/dL CAL (32.0-36.0); RED BLOOD COUNT 3.69 mill/uL (4.20-5.60); RED CELL DISTRI WIDTH 13.2 % (11.5-15.5)
[2019-11-12 05:42] LABS: ALBUMIN 3.7 g/dL (3.2-5.0); ALKALINE PHOSPHATASE 138 u/l (38-126); ANION GAP 14 (6-22 (CALC)); BILIRUBIN, TOTAL 0.4 mg/dL (0.0-1.4); BUN 13 mg/dL (7-17); BUN/CREATININE RATIO 22 (12-20 (CALC)); C-REACTIVE PROTEIN 1.7 mg/dL (0-0.9); CARBON DIOXIDE 27 mmol/l (22-30); CHLORIDE 104 mmol/l (95-108); CREATININE 0.6 mg/dL (0.5-1.0); GFR > 60 ML/MIN (>=60 (CALC)); GFR FOR AFR.AMER. > 60 ML/MIN (>=60 (CALC)); POTASSIUM 4.1 mmol/l (3.5-5.1); SGOT/AST 30 u/l (14-36); SODIUM 140 mmol/l (137-146); TOTAL PROTEIN 7.4 g/dL (6.3-8.2)
[2019-11-12 07:33] VITALS: BP 153/74
--- NOTE | 2019-11-12 07:33 | NUR ---
PT RESTING IN BED, NO SIGNS OF DISTRESS NOTED, RESP EVEN AND UNLABORED. PT ALERT AND ORIENTED X3, KENYAN SPEAKING ONLY, BELL RINGER SPEAKS KENYAN. DISCUSSED POC, PT VERBALIZED UNDERSTANDING. PT STATES SHE IS FEELING GOOD BUT STOMACH GETS UPSET WHEN SHE EATS. ENCOURAGED PO FLUIDS. ASSESSMENT COMPLETED, CALL LIGHT IN REACH,CONTINUE TO MONITOR.
--- NOTE | 2019-11-12 08:44 | NUR ---
PT ASSISTED TO SHOWER, LAMINATING MACHINE OFFBEARER AT BEDSIDE, PT VOICES NO NEEDS OR COMPLAINTS. CONTINUE TO MONITOR.
[2019-11-12 11:28] VITALS: BP 127/64
[2019-11-12 14:45] VITALS: BP 132/63
[2019-11-12 19:55] VITALS: BP 142/69
--- NOTE | 2019-11-12 21:45 | NUR ---
PT RESTING IN BED, RESPIRATIONS EVEN AND UNLABORED ON RA.LUNGS SOUND DIMINISHED. PEDAL PULSES STRONG. PT DENIES ANY PAIN OR DISCOMFORT AT THIS TIME. SAFETY PRECAUTIONS IN PLACE. WILL CONTINUE TO MONITOR.
[2019-11-13 00:13] VITALS: BP 147/70
--- NOTE | 2019-11-13 00:25 | NUR ---
PT RESTING IN BED. TELE IN PLACE. CALL NELSON WITHIN REACH. WILL CONTINUE TO MONITOR.
[2019-11-13 03:45] VITALS: BP 140/69
--- NOTE | 2019-11-13 04:21 | NUR ---
PT RESTING IN BED. RESPIRATIONS EVEN AND UNLABORED ON RA. NO S/S OF DISTRESS AT THIS TIME. TELE IN PLACE. CALL NELSON WITHIN REACH, WILL CONTINUE TO MONITOR.
--- NOTE | 2019-11-13 08:00 | NUR ---
PT RESTING IN BED, NO SIGNS OF DISTRESS NOTED, RESP EVEN AND UNLABORED. PT ALERT AND ORIENTED X3, VOICES NO NEEDS OR COMPLAINTS AT THIS TIME. DISCUSSED POC, ASSESSMENT COMPLETED, PT MEDICATED PER MAR. CALL LIGHT IN REACH,CONTINUE TO MONITOR.
[2019-11-13 08:04] VITALS: BP 161/82
--- NOTE | 2019-11-13 09:50 | NUR ---
PT RESTING IN BED WATCHING TV, NO SIGNS OF DISTRESS NOTED, RESP EVEN AND UNLABORED. CALL LIGHT IN REACH,CONTINUE TO MONITOR.
[2019-11-13 10:40] VITALS: BP 135/71
--- NOTE | 2019-11-13 12:26 | NUR ---
PT RESTING IN BED, MD AT BEDSIDE. NO NEW ORDERS RECEIVED. DISCUSSED WITH PT NEW IV SITE, ATTEMPTED TO FIND A VEIN, UNSUCCESSFUL. IV SITE TO R HAND INFUSING WELL, NO SIGNS OF REDNESS, SWELLING, OR IRRIATION. CALL LIGHT IN REACH,CONTINUE TO MONITOR.
[2019-11-13 14:50] VITALS: BP 144/67
--- NOTE | 2019-11-13 17:36 | NUR ---
PT SITTING ON SIDE OF BED, C/O ABD PAIN, PT MEDICATED PER MAR. CALL LIGHT IN REACH,CONTINUE TO MONITOR.
[2019-11-13 21:16] VITALS: BP 154/64
--- NOTE | 2019-11-13 21:56 | NUR ---
PT RESTING IN BED, ALERT AND ORIENTED. RESPIRATIONS EVEN AND UNLABORED ON RA. LUNGS SOUND DIMINISHED. PEDAL STRONG. PT DENIES ANY PAIN OR DISCOMFORT AT THIS TIME. SAFETY PRECAUTIONS IN PLACE. WILL CONTINUE TO MONITOR.
[2019-11-14] VITALS (7 sets, daily range): BP systolic 102–131; BP diastolic 51–71
--- NOTE | 2019-11-14 00:55 | NUR ---
PT RESTING IN BED. NO S/S OF DISTRESS AT THIS TIME. SAFETY PRECAUTIONS IN PLACE. WILL CONTINUE TO MONITOR.
--- NOTE | 2019-11-14 04:24 | NUR ---
PT RESTING IN BED. NO S/S OF DISTRESS AT THIS TIME. SAFETY PRECAUTIONS IN PLACE. WILL CONTINUE TO MONITOR.
[2019-11-14 06:04] LABS: HEMATOCRIT 33.7 % (37.0-47.0); HEMOGLOBIN 10.4 g/dl (12.0-16.0); IMMATURE GRANULOCYTES 0.2 % (0.0-5.0); MEAN CORPUSCULAR HGB 27.3 pG CALC (26.0-32.0); MEAN CORPUSCULAR HGB CONC 30.9 g/dL CAL (32.0-36.0); NEUT# 2.21 thou/uL (2.00-7.15); RED BLOOD COUNT 3.81 mill/uL (4.20-5.60); RED CELL DISTRI WIDTH 13.8 % (11.5-15.5)
[2019-11-14 06:17] LABS: MEAN CELL VOLUME 88.5 fL CALC (80.0-100.0)
[2019-11-14 06:19] LABS: ANION GAP 11 (6-22 (CALC)); BUN 19 mg/dL (7-17); BUN/CREATININE RATIO 28 (12-20 (CALC)); C-REACTIVE PROTEIN 0.6 mg/dL (0-0.9); CARBON DIOXIDE 28 mmol/l (22-30); CHLORIDE 106 mmol/l (95-108); CREATININE 0.7 mg/dL (0.5-1.0); GFR > 60 ML/MIN (>=60 (CALC)); GFR FOR AFR.AMER. > 60 ML/MIN (>=60 (CALC)); POTASSIUM 4.3 mmol/l (3.5-5.1); SODIUM 141 mmol/l (137-146)
--- NOTE | 2019-11-14 08:17 | NUR ---
ASSESSMENT IS COMPLETED; IV SITE IS FREE FROM REDNESS OR EDEMA. HR IS REG,PULSES ARE STRONG X4, ABD IS SOFT WITH ACTIVE BS BREATH SOUNDS ARE CLEAR BILATERALLY, TELE MONITOR IN PLACE. CONTINUE TO OSBERVE AND MONITOR.
--- NOTE | 2019-11-14 12:30 | NUR ---
PT IS RELAXING IN BED WITH NO DISTRESS NTOED. IV SITE IS FREE FROM REDNESS OR EDEMA. CONTINUE TO OBSERVE AND MONITOR.
--- NOTE | 2019-11-14 16:33 | NUR ---
PT IS RELAXING ON THE BSC. WITH NO DISTRESS NOTED. CONTINUE TO OSBERVE AND MONITOR.
--- NOTE | 2019-11-14 17:52 | NUR ---
IV SITE BENT BACKWARD. AND STARTED TO HURT PT. ATTEMPTED X2 TO RESTART THE IV UNSUCCESSFUL. CALLED JAY PEREZ CUSTOMER SUPPORT ASSISTANT
--- NOTE | 2019-11-14 18:22 | NUR ---
ATTEMPTED TO RESTART IV BY JAY PEREZ , UNSUCCESSFUL. INFORMED DR. DAVEY AND WILL CHANGE HER ABT TO IM.
--- NOTE | 2019-11-14 19:35 | NUR ---
INQUIRED ABOUT INVANZ. IT IS DAILY WILL GIVE HER TOMORROW. PER DR DAVEY
--- NOTE | 2019-11-14 21:50 | NUR ---
PT WAS SLEEPING I ENTERED THE ROOM. ASSESSMENT COMPLETED AND PT MEDICATED ORDERS PROVIDE. PT DENIED ANY OTHER NEEDS AT THIS TIME. CALL LIGHT W/IN REACH AND PT INSTRUCTED TO CALL NEEDS ARISE.
--- NOTE | 2019-11-14 22:50 | NUR ---
CLARIFIED ORDER OF INVANZ THROUGH DR. DAVEY REGARDING PT'S ALLERGIES TO PCN. PHARMACY NOTIFIED OF PHYSICIAN AWARENESS OF ALLERGY, PT HAS BEEN TAKING [place] W/OUT ISSUE.
--- NOTE | 2019-11-14 23:54 | NUR ---
PT MEDICATED W/IM INVANZ PRESCRIBED. PT TOLERATED WELL. DENIED ANY OTHER NEEDS. [place] INTERPRETED TO EDUCATE PT REGARDING MEDICATION AND WHAT TO WATCH FOR. PT VERBALIZED UNDERSTANDING. CALL LIGHT AT SIDE. TV AND LIGHTS ARE OFF.
[2019-11-15 03:35] VITALS: BP 112/60
--- NOTE | 2019-11-15 07:00 | NUR ---
SHIFT CHANGE REPORT, PT AWAKE AND ALERT SITTING UP IN CHAIR, DENIES PAIN, TELE MONITOR IN PLACE, CALL NELSON IN REACH.
[2019-11-15 08:49] VITALS: BP 140/73
[2019-11-15] MEDS ORDERED: PANTOPRAZOLE SO40 M1 PO ×2 (10:36)
[2019-11-15 11:06] VITALS: BP 119/66
--- NOTE | 2019-11-15 13:34 | NUR ---
Discharge instructions given. Patient verbalizes understanding of same. Discharged in stable condition via Wheelchair to Home with family. All belongings sent with pt.
== END 2019-11-15 13:26 | disposition home or self-care (01) | DRG 871 ==
LOC: ED 14:28 → ED-I 16:50 → ED 17:12 → ED-I 17:12 → MS2 17:27
PROVIDERS: Emergency Medicine; Family Medicine; Nurse Practitioner Family; ADMIT Internal Medicine; ATTEND Internal Medicine
DX: A41.51 Sepsis due to Escherichia coli [E. coli] (principal); U07.1 COVID-19; N39.0 Urinary tract infection, site not specified; Z16.12 Extended spectrum beta lactamase (ESBL) resistance; E11.9 Type 2 diabetes mellitus without complications; I10 Essential (primary) hypertension; E78.5 Hyperlipidemia, unspecified; F32.89 Other specified depressive episodes; Z87.440 Personal history of urinary (tract) infections; Z86.73 Personal history of transient ischemic attack (TIA), and cerebral infarction without residual deficits; Z79.4 Long term (current) use of insulin
CPT/HCPCS: J1335; J1650; Q3014; Q9967

== ENCOUNTER 2020-03-29 20:29 | Emergency (ER) | payer OTHER ==
[~2020-03-29] VITALS: Ht 154.9 cm; Wt 90.0 kg
[~2020-03-29 20:29] MED LIST changes: +FERR SULFATE325 MG PO; +HYDROCHLOROT12.5 M1 PO; +LOSARTAN POTAS100 MG PO; +PANTOPRAZOLE SO40 M1 PO; +SERTRALINE100 MG PO
[2020-03-29 22:04] LABS: HEMOGLOBIN 9.1 g/dl (12.0-16.0); IMMATURE GRANULOCYTES 0.4 % (0.0-5.0); MEAN CORPUSCULAR HGB 27.4 pG CALC (26.0-32.0); MEAN CORPUSCULAR HGB CONC 33.5 g/dL CAL (32.0-36.0); NEUT# 4.68 thou/uL (2.00-7.15); RED BLOOD COUNT 3.32 mill/uL (4.20-5.60); RED CELL DISTRI WIDTH 12.9 % (11.5-15.5)
[2020-03-29 22:05] LABS: HEMATOCRIT 27.2 % (37.0-47.0); MEAN CELL VOLUME 81.9 fL CALC (80.0-100.0)
[2020-03-29 22:22] LABS: ALBUMIN 3.4 g/dL (3.2-5.0); ANION GAP 14 (6-22 (CALC)); BILIRUBIN, TOTAL 0.4 mg/dL (0.0-1.4); BUN 15 mg/dL (7-17); BUN/CREATININE RATIO 28 (12-20 (CALC)); CARBON DIOXIDE 26 mmol/l (22-30); CHLORIDE 99 mmol/l (95-108); CREATININE 0.5 mg/dL (0.5-1.0); GFR > 60 ML/MIN (>=60 (CALC)); GFR FOR AFR.AMER. > 60 ML/MIN (>=60 (CALC)); POTASSIUM 4.9 mmol/l (3.5-5.1); SGOT/AST 32 u/l (14-36); SODIUM 134 mmol/l (137-146); TOTAL PROTEIN 7.3 g/dL (6.3-8.2)
[2020-03-29 22:23] LABS: ALKALINE PHOSPHATASE 208 u/l (38-126)
[2020-03-29 22:30] LABS: URINE BILIRUBIN - DIPSTICK NEGATIVE (NEGATIVE); URINE BLOOD DIPSTICK NEGATIVE (NEGATIVE); URINE COLOR YELLOW; URINE GLUCOSE - DIPSTICK >=1000 mg/dL (NEGATIVE); URINE KETONE NEGATIVE (NEGATIVE); URINE LEUK ESTERASE NEGATIVE (NEGATIVE); URINE NITRITE - DIPSTICK POSITIVE (Negative); URINE PROTEIN - DIPSTICK NEGATIVE (NEG-TRACE); URINE SPECIFIC GRAVITY 1.015; URINE UROBILINOGEN - DIPSTICK 0.2 E.U./dL (0.2)
[2020-03-29 22:39] LABS: URINE BACTERIA FEW hpf; URINE RBC 0-2 RBC/hpf (0-5); URINE SQUAMOUS EPITHELIAL CELL FEW EPI/hpf (0-FEW)
[2020-03-30 00:29] VITALS: BP 132/63
== END 2020-03-30 01:45 | disposition short-term general hospital (02) ==
LOC: ED 20:29
PROVIDERS: Emergency Medicine
DX: E11.621 Type 2 diabetes mellitus with foot ulcer (principal); L97.419 Non-pressure chronic ulcer of right heel and midfoot with unspecified severity; E11.65 Type 2 diabetes mellitus with hyperglycemia; N39.0 Urinary tract infection, site not specified; B96.20 Unspecified Escherichia coli [E. coli] as the cause of diseases classified elsewhere; I10 Essential (primary) hypertension; Z86.73 Personal history of transient ischemic attack (TIA), and cerebral infarction without residual deficits; Z79.4 Long term (current) use of insulin; Z16.12 Extended spectrum beta lactamase (ESBL) resistance
CPT/HCPCS: Q9967

== ENCOUNTER 2021-01-23 08:07 | Emergency (ER) | payer OTHER ==
[~2021-01-23] VITALS: Ht 152.4 cm; Wt 77.0 kg
[2021-01-23 09:35] LABS: HEMOGLOBIN 9.5 g/dl (12.0-16.0); IMMATURE GRANULOCYTES 0.6 % (0.0-5.0); MEAN CELL VOLUME 83.8 fL CALC (80.0-100.0); MEAN CORPUSCULAR HGB 25.7 pG CALC (26.0-32.0); MEAN CORPUSCULAR HGB CONC 30.6 g/dL CAL (32.0-36.0); NEUT# 3.73 thou/uL (2.00-7.15); RED BLOOD COUNT 3.7 mill/uL (4.20-5.60); RED CELL DISTRI WIDTH 14.3 % (11.5-15.5)
[2021-01-23 09:44] LABS: ALBUMIN 3.7 g/dL (3.2-5.0); ALKALINE PHOSPHATASE 172 u/l (38-126); ANION GAP 14 (6-22 (CALC)); BILIRUBIN, TOTAL 0.3 mg/dL (0.0-1.4); BUN 30 mg/dL (7-17); BUN/CREATININE RATIO 34 (12-20 (CALC)); CARBON DIOXIDE 23 mmol/l (22-30); CHLORIDE 104 mmol/l (95-108); CREATININE 0.9 mg/dL (0.5-1.0); GFR > 60 ML/MIN (>=60 (CALC)); GFR FOR AFR.AMER. > 60 ML/MIN (>=60 (CALC)); POTASSIUM 5.1 mmol/l (3.5-5.1); SGOT/AST 34 u/l (14-36); SODIUM 136 mmol/l (137-146); TOTAL PROTEIN 8.8 g/dL (6.3-8.2)
[2021-01-23 09:57] LABS: MYOGLOBIN 30 ng/mL (0 - 62)
[2021-01-23 10:39] LABS: URINE BILIRUBIN - DIPSTICK NEGATIVE (NEGATIVE); URINE BLOOD DIPSTICK NEGATIVE (NEGATIVE); URINE COLOR YELLOW; URINE GLUCOSE - DIPSTICK NEGATIVE (NEGATIVE); URINE KETONE NEGATIVE (NEGATIVE); URINE PROTEIN - DIPSTICK NEGATIVE (NEG-TRACE); URINE UROBILINOGEN - DIPSTICK 0.2 E.U./dL (0.2)
[2021-01-23 10:40] LABS: URINE LEUK ESTERASE MODERATE (NEGATIVE); URINE NITRITE - DIPSTICK NEGATIVE (Negative)
[2021-01-23 10:43] LABS: URINE BACTERIA MANY hpf
[2021-01-23 10:44] LABS: URINE WBC >100 WBC/hpf (0-5)
[2021-01-23] MEDS ORDERED: CIPROFLOXACN500 MG PO (12:40)
[2021-01-23] MEDS ORDERED: MIRALAX17 GM PO (12:40)
[2021-01-23 12:47] VITALS: BP 190/98
== END 2021-01-23 12:55 | disposition home or self-care (01) ==
LOC: ED 08:07
PROVIDERS: Emergency Medicine
DX: N39.0 Urinary tract infection, site not specified (principal); Z20.822 Contact with and (suspected) exposure to COVID-19; E86.0 Dehydration; I10 Essential (primary) hypertension; E11.9 Type 2 diabetes mellitus without complications; F41.9 Anxiety disorder, unspecified; F32.9 Major depressive disorder, single episode, unspecified; B96.1 Klebsiella pneumoniae [K. pneumoniae] as the cause of diseases classified elsewhere; Z86.73 Personal history of transient ischemic attack (TIA), and cerebral infarction without residual deficits; K56.41 Fecal impaction
CPT/HCPCS: J1956

== ENCOUNTER 2021-09-03 21:58 | Emergency (ER) | payer OTHER ==
[~2021-09-03] VITALS: Ht 152.4 cm; Wt 77.0 kg
[~2021-09-03 21:58] MED LIST changes: +MIRALAX17 GM PO
[2021-09-03 22:55] LABS: HEMATOCRIT 26.7 % (37.0-47.0); HEMOGLOBIN 8.4 g/dl (12.0-16.0); IMMATURE GRANULOCYTES 0.3 % (0.0-5.0); MEAN CELL VOLUME 79.2 fL CALC (80.0-100.0); MEAN CORPUSCULAR HGB 24.9 pG CALC (26.0-32.0); MEAN CORPUSCULAR HGB CONC 31.5 g/dL CAL (32.0-36.0); NEUT# 3.83 thou/uL (2.00-7.15); RED BLOOD COUNT 3.37 mill/uL (4.20-5.60); RED CELL DISTRI WIDTH 14.9 % (11.5-15.5)
[2021-09-03 23:14] LABS: ACT PARTIAL THROMBO TIME 26.4 SECONDS (20.0-32.5); ALBUMIN 3.5 g/dL (3.2-5.0); ALKALINE PHOSPHATASE 256 u/l (38-126); ANION GAP 13 (6-22 (CALC)); BILIRUBIN, TOTAL 0.3 mg/dL (0.0-1.4); BUN 15 mg/dL (7-17); BUN/CREATININE RATIO 25 (12-20 (CALC)); CARBON DIOXIDE 23 mmol/l (22-30); CHLORIDE 100 mmol/l (95-108); CREATININE 0.6 mg/dL (0.5-1.0); ETHYL ALCOHOL 0 mg/dl (0-30); GFR > 60 ML/MIN (>=60 (CALC)); GFR FOR AFR.AMER. > 60 ML/MIN (>=60 (CALC)); INTERNATIONAL NORMALIZED RATIO 0.9 RATIO (0.7-1.3); LIPASE 98 u/l (23-300); MAGNESIUM 1.4 mg/dL (1.6-2.3); POTASSIUM 4.2 mmol/l (3.5-5.1); PROTHROMBIN TIME 9.6 SECONDS (9.0-12.5); SGOT/AST 20 u/l (14-36); SODIUM 131 mmol/l (137-146); TOTAL PROTEIN 8.2 g/dL (6.3-8.2)
[2021-09-03 23:28] LABS: URINE BILIRUBIN - DIPSTICK NEGATIVE (NEGATIVE); URINE BLOOD DIPSTICK SMALL (NEGATIVE); URINE COLOR YELLOW; URINE GLUCOSE - DIPSTICK >=1000 mg/dL (NEGATIVE); URINE KETONE NEGATIVE (NEGATIVE); URINE PROTEIN - DIPSTICK 30 mg/dL (NEG-TRACE); URINE UROBILINOGEN - DIPSTICK 0.2 E.U./dL (0.2)
[2021-09-03 23:31] LABS: URINE LEUK ESTERASE NEGATIVE (NEGATIVE); URINE NITRITE - DIPSTICK NEGATIVE (Negative)
[2021-09-03 23:35] LABS: URINE BACTERIA MANY hpf; URINE EPITHELIAL CELLS MODERATE EPI/hpf (0-FEW); URINE YEAST FEW hpf
[2021-09-04] VITALS (38 sets, daily range): BP systolic 128–206; BP diastolic 47–108
[2021-09-04] MEDS ORDERED: BACTRIM DS1 TAB PO (01:58)
[2021-09-04] MEDS ORDERED: COZAAR100 MG PO (10:06)
[2021-09-04] MEDS ORDERED: LEVEMIR100 UNIT SC (10:06)
[2021-09-04] MEDS ORDERED: ATORVASTATIN CA40 MG PO (10:07)
[2021-09-04] MEDS ORDERED: NOVOLOG100 UNIT SC (10:07)
[2021-09-04] MEDS ORDERED: METFORMIN HYD1000 MG PO (10:08)
[2021-09-04 18:49] LABS: HEMATOCRIT 28.7 % (37.0-47.0); HEMOGLOBIN 8.9 g/dl (12.0-16.0); IMMATURE GRANULOCYTES 0.3 % (0.0-5.0); MEAN CELL VOLUME 79.9 fL CALC (80.0-100.0); MEAN CORPUSCULAR HGB 24.8 pG CALC (26.0-32.0); NEUT# 3.48 thou/uL (2.00-7.15); RED BLOOD COUNT 3.59 mill/uL (4.20-5.60); RED CELL DISTRI WIDTH 15.1 % (11.5-15.5)
[2021-09-04 19:02] LABS: ALBUMIN 3.5 g/dL (3.2-5.0); ALKALINE PHOSPHATASE 207 u/l (38-126); ANION GAP 11 (6-22 (CALC)); BILIRUBIN, TOTAL 0.3 mg/dL (0.0-1.4); BUN 13 mg/dL (7-17); BUN/CREATININE RATIO 20 (12-20 (CALC)); CARBON DIOXIDE 26 mmol/l (22-30); CHLORIDE 106 mmol/l (95-108); CREATININE 0.7 mg/dL (0.5-1.0); GFR > 60 ML/MIN (>=60 (CALC)); GFR FOR AFR.AMER. > 60 ML/MIN (>=60 (CALC)); POTASSIUM 4.5 mmol/l (3.5-5.1); SGOT/AST 25 u/l (14-36); TOTAL PROTEIN 8.3 g/dL (6.3-8.2)
[2021-09-04 19:03] LABS: SODIUM 138 mmol/l (137-146)
[2021-09-05] VITALS (9 sets, daily range): BP systolic 108–205; BP diastolic 47–92
[2021-09-06 08:00] VITALS: BP 141/64
[2021-09-06 13:21] VITALS: BP 127/47
[2021-09-06 15:50] VITALS: BP 127/47
== END 2021-09-06 15:50 | disposition designated cancer center or children's hospital (05) ==
LOC: ED 21:58
PROVIDERS: Family Medicine
DX: R45.851 Suicidal ideations (principal); F32.A Depression, unspecified; N39.0 Urinary tract infection, site not specified; E11.9 Type 2 diabetes mellitus without complications; I10 Essential (primary) hypertension; F41.9 Anxiety disorder, unspecified; T38.3X6A Underdosing of insulin and oral hypoglycemic [antidiabetic] drugs, initial encounter; Z91.128 Patient's intentional underdosing of medication regimen for other reason; Z79.4 Long term (current) use of insulin; Z86.73 Personal history of transient ischemic attack (TIA), and cerebral infarction without residual deficits; Z20.822 Contact with and (suspected) exposure to COVID-19

== ENCOUNTER 2021-10-26 18:18 | Inpatient (IN) | payer OTHER ==
[2021-10-26] VITALS (23 sets, daily range): BP systolic 143–236; BP diastolic 59–205
[~2021-10-26] VITALS: Ht 152.4 cm; Wt 80.0 kg
[~2021-10-26 18:18] MED LIST changes: +COZAAR100 MG PO; +LEVEMIR100 UNIT SC; +METFORMIN HYD1000 MG PO; +NOVOLOG100 UNIT SC
[2021-10-26 19:39] LABS: HEMATOCRIT 29.5 % (37.0-47.0); HEMOGLOBIN 8.9 g/dl (12.0-16.0); IMMATURE GRANULOCYTES 0.1 % (0.0-5.0); MEAN CELL VOLUME 82.6 fL CALC (80.0-100.0); MEAN CORPUSCULAR HGB 24.9 pG CALC (26.0-32.0); MEAN CORPUSCULAR HGB CONC 30.2 g/dL CAL (32.0-36.0); NEUT# 4.43 thou/uL (2.00-7.15); RED BLOOD COUNT 3.57 mill/uL (4.20-5.60); RED CELL DISTRI WIDTH 15.1 % (11.5-15.5)
[2021-10-26 19:41] LABS: URINE BILIRUBIN - DIPSTICK NEGATIVE (NEGATIVE); URINE BLOOD DIPSTICK SMALL (NEGATIVE); URINE COLOR YELLOW; URINE GLUCOSE - DIPSTICK >=1000 mg/dL (NEGATIVE); URINE KETONE NEGATIVE (NEGATIVE); URINE LEUK ESTERASE NEGATIVE (NEGATIVE); URINE NITRITE - DIPSTICK NEGATIVE (Negative); URINE PROTEIN - DIPSTICK 100 mg/dL (NEG-TRACE); URINE UROBILINOGEN - DIPSTICK 0.2 E.U./dL (0.2)
[2021-10-26 19:45] LABS: URINE BACTERIA MANY hpf
[2021-10-26 19:51] LABS: ALBUMIN 3.8 g/dL (3.2-5.0); ALKALINE PHOSPHATASE 243 u/l (38-126); ANION GAP 11 (6-22 (CALC)); BILIRUBIN, TOTAL 0.2 mg/dL (0.0-1.4); BUN 20 mg/dL (7-17); BUN/CREATININE RATIO 19 (12-20 (CALC)); CARBON DIOXIDE 26 mmol/l (22-30); CHLORIDE 107 mmol/l (95-108); GFR 57 ML/MIN (>=60 (CALC)); GFR FOR AFR.AMER. > 60 ML/MIN (>=60 (CALC)); POTASSIUM 4.7 mmol/l (3.5-5.1); SGOT/AST 25 u/l (14-36); SODIUM 139 mmol/l (137-146); TOTAL PROTEIN 8.4 g/dL (6.3-8.2)
[2021-10-26 20:03] LABS: MYOGLOBIN 37 ng/mL (0 - 62)
[2021-10-27] VITALS (20 sets, daily range): BP systolic 141–167; BP diastolic 53–76
[2021-10-27 05:12] LABS: HEMATOCRIT 25.4 % (37.0-47.0); HEMOGLOBIN 7.7 g/dl (12.0-16.0); MEAN CORPUSCULAR HGB 25.2 pG CALC (26.0-32.0); MEAN CORPUSCULAR HGB CONC 30.3 g/dL CAL (32.0-36.0); RED BLOOD COUNT 3.06 mill/uL (4.20-5.60); RED CELL DISTRI WIDTH 15.1 % (11.5-15.5)
[2021-10-27 05:28] LABS: ANION GAP 10 (6-22 (CALC)); BUN 21 mg/dL (7-17); BUN/CREATININE RATIO 27 (12-20 (CALC)); CARBON DIOXIDE 26 mmol/l (22-30); CHLORIDE 107 mmol/l (95-108); CREATININE 0.8 mg/dL (0.5-1.0); GFR > 60 ML/MIN (>=60 (CALC)); GFR FOR AFR.AMER. > 60 ML/MIN (>=60 (CALC)); MAGNESIUM 1.4 mg/dL (1.6-2.3); POTASSIUM 4.7 mmol/l (3.5-5.1); SODIUM 139 mmol/l (137-146)
[2021-10-28 04:55] VITALS: BP 134/61
[2021-10-28 05:21] LABS: HEMATOCRIT 26.2 % (37.0-47.0); HEMOGLOBIN 7.8 g/dl (12.0-16.0); MEAN CELL VOLUME 83.4 fL CALC (80.0-100.0); MEAN CORPUSCULAR HGB 24.8 pG CALC (26.0-32.0); MEAN CORPUSCULAR HGB CONC 29.8 g/dL CAL (32.0-36.0); RED BLOOD COUNT 3.14 mill/uL (4.20-5.60); RED CELL DISTRI WIDTH 15.1 % (11.5-15.5)
[2021-10-28 05:46] LABS: BUN 19 mg/dL (7-17); BUN/CREATININE RATIO 25 (12-20 (CALC)); CARBON DIOXIDE 27 mmol/l (22-30); CHLORIDE 109 mmol/l (95-108); CREATININE 0.8 mg/dL (0.5-1.0); GFR > 60 ML/MIN (>=60 (CALC)); GFR FOR AFR.AMER. > 60 ML/MIN (>=60 (CALC)); MAGNESIUM 1.5 mg/dL (1.6-2.3); SODIUM 140 mmol/l (137-146)
[2021-10-28 05:48] LABS: ANION GAP 8 (6-22 (CALC)); POTASSIUM 4.2 mmol/l (3.5-5.1)
[2021-10-28 08:04] VITALS: BP 156/71
[2021-10-28 10:37] VITALS: BP 167/69
[2021-10-28] MEDS ORDERED: LISINOPRIL10 MG PO (14:41)
[2021-10-28] MEDS ORDERED: ZOLOFT50 MG PO (14:47)
[2021-10-28] MEDS ORDERED: BUPROPION HCL100 M2 PO (14:47)
[2021-10-28] MEDS ORDERED: HYDROCHLOROT12.5 M1 PO (14:47)
[2021-10-28 15:41] VITALS: BP 141/59
[2021-10-28 19:00] VITALS: BP 173/69
[2021-10-28 19:01] VITALS: BP 173/69
[2021-10-29 00:36] VITALS: BP 149/66
[2021-10-29 04:50] VITALS: BP 127/52
[2021-10-29 05:34] LABS: HEMATOCRIT 26.3 % (37.0-47.0); HEMOGLOBIN 7.9 g/dl (12.0-16.0); IMMATURE GRANULOCYTES 0.3 % (0.0-5.0); MEAN CORPUSCULAR HGB 24.9 pG CALC (26.0-32.0); NEUT# 3.58 thou/uL (2.00-7.15); RED BLOOD COUNT 3.17 mill/uL (4.20-5.60); RED CELL DISTRI WIDTH 14.9 % (11.5-15.5)
[2021-10-29 05:51] LABS: ANION GAP 13 (6-22 (CALC)); BUN 23 mg/dL (7-17); BUN/CREATININE RATIO 26 (12-20 (CALC)); CARBON DIOXIDE 25 mmol/l (22-30); CHLORIDE 108 mmol/l (95-108); CREATININE 0.9 mg/dL (0.5-1.0); GFR > 60 ML/MIN (>=60 (CALC)); GFR FOR AFR.AMER. > 60 ML/MIN (>=60 (CALC)); MAGNESIUM 1.7 mg/dL (1.6-2.3); POTASSIUM 4.8 mmol/l (3.5-5.1); SODIUM 140 mmol/l (137-146)
[2021-10-29 10:05] VITALS: BP 142/52
[2021-10-29 15:05] VITALS: BP 150/64
[2021-10-29 19:23] VITALS: BP 148/76
[2021-10-30 00:16] VITALS: BP 140/61
[2021-10-30 04:36] VITALS: BP 146/72
[2021-10-30 05:19] LABS: HEMATOCRIT 25.9 % (37.0-47.0); HEMOGLOBIN 7.8 g/dl (12.0-16.0); MEAN CORPUSCULAR HGB CONC 30.1 g/dL CAL (32.0-36.0); RED BLOOD COUNT 3.12 mill/uL (4.20-5.60); RED CELL DISTRI WIDTH 14.8 % (11.5-15.5)
[2021-10-30 05:28] LABS: ANION GAP 10 (6-22 (CALC)); BUN 21 mg/dL (7-17); BUN/CREATININE RATIO 26 (12-20 (CALC)); CARBON DIOXIDE 25 mmol/l (22-30); CHLORIDE 108 mmol/l (95-108); CREATININE 0.8 mg/dL (0.5-1.0); GFR > 60 ML/MIN (>=60 (CALC)); GFR FOR AFR.AMER. > 60 ML/MIN (>=60 (CALC)); POTASSIUM 4.4 mmol/l (3.5-5.1); SODIUM 139 mmol/l (137-146)
[2021-10-30 07:13] VITALS: BP 148/71
[2021-10-30 07:26] VITALS: BP 148/71
[2021-10-30 08:00] VITALS: BP 156/62
[2021-10-30 10:25] VITALS: BP 133/75
[2021-10-30] MEDS ORDERED: CEPHALEXIN500 MG PO (11:36)
[2021-10-30] MEDS ORDERED: KETOCONAZOLE2 % EX (11:38)
[2021-10-30] MEDS ORDERED: KETOCONAZOLE21 EX (11:41)
[2021-10-30] MEDS ORDERED: HYDROCHLOROTH12.5 M1 PO (11:51)
== END 2021-10-30 14:29 | disposition home or self-care (01) | DRG 194 ==
LOC: ED 18:18 → ED-I 22:10 → ED 22:34 → MS2 22:35
PROVIDERS: Emergency Medicine; Nurse Practitioner; ADMIT Hospitalist; ATTEND Internal Medicine
DX: J18.9 Pneumonia, unspecified organism (principal); L03.311 Cellulitis of abdominal wall; I69.954 Hemiplegia and hemiparesis following unspecified cerebrovascular disease affecting left non-dominant side; S31.109A Unspecified open wound of abdominal wall, unspecified quadrant without penetration into peritoneal cavity, initial encounter; N30.90 Cystitis, unspecified without hematuria; E11.65 Type 2 diabetes mellitus with hyperglycemia; I10 Essential (primary) hypertension; L57.0 Actinic keratosis; R09.02 Hypoxemia; L40.9 Psoriasis, unspecified; B36.9 Superficial mycosis, unspecified; L82.1 Other seborrheic keratosis; E78.5 Hyperlipidemia, unspecified; F41.9 Anxiety disorder, unspecified; F32.A Depression, unspecified; B96.1 Klebsiella pneumoniae [K. pneumoniae] as the cause of diseases classified elsewhere; B95.61 Methicillin susceptible Staphylococcus aureus infection as the cause of diseases classified elsewhere; X58.XXXA Exposure to other specified factors, initial encounter; Z79.4 Long term (current) use of insulin; Z79.84 Long term (current) use of oral hypoglycemic drugs; Z88.0 Allergy status to penicillin; Z87.891 Personal history of nicotine dependence; Z87.440 Personal history of urinary (tract) infections; Z91.19 Patient's noncompliance with other medical treatment and regimen; Z89.411 Acquired absence of right great toe; Z89.421 Acquired absence of other right toe(s); Z20.822 Contact with and (suspected) exposure to COVID-19
CPT/HCPCS: J1650; J3475; Q3014; Q9967

== ENCOUNTER → 2022-02-19 | Day surgery (SDC) | payer OTHER ==
[~2022-02-19] VITALS: Ht 152.4 cm; Wt 74.8 kg
[~2022-02-19] MED LIST changes: +BUPROPION HCL100 M2 PO; +CEPHALEXIN500 MG PO; +HYDROCHLOROTH12.5 M1 PO; +KETOCONAZOLE2 % EX; +KETOCONAZOLE21 EX
[2022-02-19 10:19] VITALS: BP 210/101
== END ==
LOC: ORM 09:00
PROVIDERS: ATTEND Physical Medicine & Rehabilitation
DX: Z53.9 Procedure and treatment not carried out, unspecified reason (principal)

== ENCOUNTER 2022-03-19 09:05 | Day surgery (SDC) | payer OTHER ==
[~2022-03-19] VITALS: Ht 152.4 cm; Wt 76.2 kg
[2022-03-19 11:09] VITALS: BP 184/83
== END 2022-03-19 11:23 | disposition home or self-care (01) ==
LOC: ORM 09:05
PROVIDERS: ATTEND Physical Medicine & Rehabilitation
DX: M47.812 Spondylosis without myelopathy or radiculopathy, cervical region (principal)

== ENCOUNTER 2022-08-15 19:47 | Emergency (ER) | payer OTHER ==
[~2022-08-15] VITALS: Ht 152.4 cm; Wt 72.6 kg
[2022-08-15 23:03] LABS: BASO% 0.4 % (0-3); EOS% 4.9 % (0-8); HEMATOCRIT 31.8 % (37.0-47.0); IMMATURE GRANULOCYTES 0.1 % (0.0-5.0); LYMPH% 34.5 % (15-41); MEAN CORPUSCULAR HGB 25.8 pG CALC (26.0-32.0); MEAN CORPUSCULAR HGB CONC 31.4 g/dL CAL (32.0-36.0); MONO% 6.5 % (2-13); NEUT# 4.05 thou/uL (2.00-7.15); NEUT% 53.6 % (42-76); RED BLOOD COUNT 3.88 mill/uL (4.20-5.60); URINE BILIRUBIN - DIPSTICK NEGATIVE (NEGATIVE); URINE BLOOD DIPSTICK MODERATE (NEGATIVE); URINE COLOR YELLOW; URINE GLUCOSE - DIPSTICK 100 mg/dL (NEGATIVE); URINE KETONE NEGATIVE (NEGATIVE); URINE PROTEIN - DIPSTICK 100 mg/dL (NEG-TRACE); URINE UROBILINOGEN - DIPSTICK 0.2 E.U./dL (0.2)
[2022-08-15 23:04] LABS: URINE LEUK ESTERASE SMALL (NEGATIVE); URINE NITRITE - DIPSTICK NEGATIVE (Negative)
[2022-08-15 23:10] LABS: URINE WBC 20-50 WBC/hpf (0-5)
[2022-08-15 23:11] LABS: URINE BACTERIA MANY hpf; URINE SQUAMOUS EPITHELIAL CELL MANY EPI/hpf (0-FEW)
[2022-08-15 23:26] LABS: ALBUMIN 3.8 g/dL (3.2-5.0); ALKALINE PHOSPHATASE 177 u/l (38-126); AMYLASE 45 u/l (30-110); ANION GAP 9 (6-22 (CALC)); BILIRUBIN, TOTAL 0.1 mg/dL (0.02-1.3); BUN 32 mg/dL (7-17); BUN/CREATININE RATIO 29 (12-20 (CALC)); CARBON DIOXIDE 27 mmol/l (22-30); CHLORIDE 104 mmol/l (95-108); CREATININE 1.1 mg/dL (0.5-1.0); GFR FOR AFR.AMER. > 60 ML/MIN (>=60 (CALC)); GFR OTHER RACES 51 ML/MIN (>=60 (CALC)); LIPASE 58 u/l (23-300); POTASSIUM 4.6 mmol/l (3.5-5.1); SGOT/AST 30 u/l (14-36); SODIUM 136 mmol/l (137-146); TOTAL PROTEIN 8.1 g/dL (6.3-8.2)
[2022-08-16] MEDS ORDERED: FIORICET PO (00:22)
[2022-08-16] MEDS ORDERED: CIPROFLOXACN500 MG PO (00:22)
[2022-08-16 00:40] VITALS: BP 142/69
== END 2022-08-16 01:40 | disposition home or self-care (01) ==
LOC: ED 19:47
PROVIDERS: Emergency Medicine
DX: N39.0 Urinary tract infection, site not specified (principal); R51.9 Headache, unspecified; I10 Essential (primary) hypertension; E11.9 Type 2 diabetes mellitus without complications; F41.9 Anxiety disorder, unspecified; F32.A Depression, unspecified; Z79.84 Long term (current) use of oral hypoglycemic drugs; Z79.4 Long term (current) use of insulin; Z86.73 Personal history of transient ischemic attack (TIA), and cerebral infarction without residual deficits
CPT/HCPCS: J1956

== ENCOUNTER 2022-10-13 17:34 | Inpatient (IN) | payer OTHER ==
[~2022-10-13] VITALS: Ht 152.4 cm; Wt 72.0 kg
[2022-10-13] VITALS (12 sets, daily range): BP systolic 148–201; BP diastolic 61–94
[~2022-10-13 17:34] MED LIST changes: +FIORICET PO
--- NOTE | 2022-10-13 17:36 | NUR ---
PT TAKEN TO ROOM 8 VIA EC. PT ATTEMPTED TO GIVE UA SAMPLE AND UNABLE TO URINATE. PT DIAPHORETIC, SPEECH CELAR. PT STS SHE DOES NOT FEEL WELL. ATTENDING MD AWARE
--- NOTE | 2022-10-13 18:30 | NUR ---
PT LYING IN BED AWAKE. IV OBTAINED. PT COLOR LOOKS IMPROVED AND IS LESS DIAPHORETIC. NO FUTHER DISTRESS NOTED. WILL CONT TO MONITOR.
[2022-10-13 18:40] LABS: BASO% 0.3 % (0-3); EOS% 4.3 % (0-8); HEMATOCRIT 34.7 % (37.0-47.0); HEMOGLOBIN 11.2 g/dl (12.0-16.0); IMMATURE GRANULOCYTES 0.1 % (0.0-5.0); LYMPH% 28.6 % (15-41); MEAN CELL VOLUME 81.1 fL CALC (80.0-100.0); MEAN CORPUSCULAR HGB 26.2 pG CALC (26.0-32.0); MEAN CORPUSCULAR HGB CONC 32.3 g/dL CAL (32.0-36.0); MONO% 5.9 % (2-13); NEUT# 4.75 thou/uL (2.00-7.15); NEUT% 60.8 % (42-76); RED BLOOD COUNT 4.28 mill/uL (4.20-5.60); RED CELL DISTRI WIDTH 13.7 % (11.5-15.5)
[2022-10-13 18:59] LABS: ALBUMIN 4.2 g/dL (3.2-5.0); CREATININE 1.4 mg/dL (0.5-1.0); POTASSIUM 4.1 mmol/l (3.5-5.1); TOTAL PROTEIN 8.9 g/dL (6.3-8.2)
[2022-10-13 19:00] LABS: BILIRUBIN, TOTAL 0.3 mg/dL (0.02-1.3)
[2022-10-13 19:31] LABS: URINE BLOOD DIPSTICK LARGE (NEGATIVE); URINE COLOR YELLOW; URINE GLUCOSE - DIPSTICK NEGATIVE (NEGATIVE); URINE KETONE TRACE mg/dL (NEGATIVE); URINE LEUK ESTERASE TRACE (NEGATIVE); URINE PH 5.5 (4.5-8.0); URINE PROTEIN - DIPSTICK >=300 mg/dL (NEG-TRACE); URINE SPECIFIC GRAVITY >=1.030; URINE UROBILINOGEN - DIPSTICK 0.2 E.U./dL (0.2)
[2022-10-13 19:34] LABS: URINE BILIRUBIN - DIPSTICK SMALL (NEGATIVE); URINE NITRITE - DIPSTICK NEGATIVE (Negative)
[2022-10-13 19:46] LABS: URINE SQUAMOUS EPITHELIAL CELL FEW EPI/hpf (0-FEW); URINE WBC 50-100 WBC/hpf (0-5)
--- NOTE | 2022-10-13 21:01 | NUR ---
Reassessment of patient completed. No distress noted.
--- NOTE | 2022-10-13 21:45 | NUR ---
PT ADMITTED TO MED/SURG. REPORT CALLED TO CHRIS PEREZ. TELEMETRY BOX PLACED ON PT. PT TRANSFERRED TO ROOM WITH ALL BELONGINGS. NAD. JEROME.
--- NOTE | 2022-10-14 00:36 | NUR ---
PATIENT RESTING QUIETLY IN BED. NO SIGNS OF DISTRESS. CALL LIGHT WITHIN REACH.
--- NOTE | 2022-10-14 00:49 | NUR ---
PATIENT ARRIVED TO ROOM 262 ON 10/10/22 AT 2110 VIA STRETCHER. ER NURSE TRANSPORTING AND SPOUSE ACCOMPANYING. PATIENT IS ALBANIAN-SPEAKING ONLY. SPOUSE ASSISTING WITH TRANSLATION. DAUGHTER CAME TO BEDSIDE WELL TO TRANSLATE. PATIENT HAS A RASH TO TORSO AND SCALP. DAUGHTER STATES THAT THE RASH IS PSORIASIS. 18 FR GOEL CATHE[address] ION PL[address] AND DRAINGING CLOUDY YELLOW URINE. DENIES PAIN OR DISCOMFORT.
[2022-10-14 04:23] VITALS: BP 129/62
--- NOTE | 2022-10-14 04:31 | NUR ---
PATIENT RESTING IN BED WITH EYES CLOSED. EASILY AROUSED. FRESH ICE WATER PROVIDED. DENIES PAIN OR DISCOMFORT. SPOUSE AT BEDISDE AND OFFERS TRANSLATION NEEDED. CALL LIGHT WITHIN REACH.
[2022-10-14 05:32] LABS: HEMATOCRIT 31.8 % (37.0-47.0); HEMOGLOBIN 10.3 g/dl (12.0-16.0); MEAN CELL VOLUME 80.9 fL CALC (80.0-100.0); MEAN CORPUSCULAR HGB 26.2 pG CALC (26.0-32.0); MEAN CORPUSCULAR HGB CONC 32.4 g/dL CAL (32.0-36.0); RED BLOOD COUNT 3.93 mill/uL (4.20-5.60); RED CELL DISTRI WIDTH 13.8 % (11.5-15.5)
[2022-10-14 05:57] LABS: ALKALINE PHOSPHATASE 127 u/l (38-126); ANION GAP 8 (6-22 (CALC)); BUN 29 mg/dL (7-17); BUN/CREATININE RATIO 26 (12-20 (CALC)); CARBON DIOXIDE 28 mmol/l (22-30); CHLORIDE 107 mmol/l (95-108); CREATININE 1.1 mg/dL (0.5-1.0); GFR FOR AFR.AMER. > 60 ML/MIN (>=60 (CALC)); GFR OTHER RACES 51 ML/MIN (>=60 (CALC)); MAGNESIUM 1.6 mg/dL (1.6-2.3); POTASSIUM 3.9 mmol/l (3.5-5.1); SGOT/AST 29 u/l (14-36); SODIUM 139 mmol/l (137-146)
[2022-10-14 05:58] LABS: ALBUMIN 3.3 g/dL (3.2-5.0)
[2022-10-14 06:31] VITALS: BP 136/61
--- NOTE | 2022-10-14 06:43 | NUR ---
PATIENT BLOOD GLUCOSE WAS 63 AT 0600. PATIENT WAS ASYMPTOMATIC. SNACK AND JUICE GIVEN. PATIENT ALERT AT THIS TIME.
--- NOTE | 2022-10-14 07:11 | NUR ---
patient glucose was 66 and nurse notified
--- NOTE | 2022-10-14 08:00 | NUR ---
PT IN BED WITH HOB UP, EATING BREAKFAST. ALERT AND ORIENTED X 3. PT HAS NO C/O PAIN AT THIS TIME. TELE ON WITH ALL LEADS ATTACHED. IV SITE LAC CLEAN AND INTACT WITH NS @ 100 ML/ HR INFUSING. GOEL PATENT DRAINING CLOUDY, YELLOW URINE. PT ENCOURAGED TO EAT WELL TO MAINTAIN BS. CALL LIGHT WITHIN REACH AND SAFETY MEASURES IN PLACE AT THIS TIME.
[2022-10-14 08:04] VITALS: BP 147/60
[2022-10-14 11:02] VITALS: BP 143/64
--- NOTE | 2022-10-14 12:12 | NUR ---
PT RESTING IN BED, ALERT AND OREINTED. PT DAUGHTER IN RM. PT HAS NO C/O PAIN AT THIS TIME. IV TO LAC WITH NS@ 100ML/HR INFUSING, NEW BAG OF FLUIDS HUNG. NO CHANGE IN PT STATUS AT THIS ITME. PT HAS CALL LIGHT WITHIN REACH.
[2022-10-14 14:40] VITALS: BP 150/64
--- NOTE | 2022-10-14 16:00 | NUR ---
PT IN BED RESTING WITH EYES CLOSED. TELE ON WITH ALL LEADS ATTACHED. NS 100 ML/HR INFUSING. NO CHANGE IN STATUS AT THIS TIME. CALL LIGHT WITHIN REACH AND SAFETY MEASURES IN PLACE.
[2022-10-14 18:45] VITALS: BP 165/58
--- NOTE | 2022-10-14 20:08 | NUR ---
BEDSIDE REPORT RECEIVED. PT LYING IN BED. ALERT, WATCHING TV. GOEL CATH IS PATENT AND DRAINING CLEAR YELLOW URINE. NO C/O OFFERED. CALL LIGHT IN REACH.
[2022-10-15 00:17] VITALS: BP 163/62
[2022-10-15 04:24] VITALS: BP 186/73
--- NOTE | 2022-10-15 04:47 | NUR ---
PT SLEEPING WELL. FOLETY PATENT DRAINING CLEAR YELLOW URINE. NO C/O OF PAIN OR DISCOMFORT. BED IS LOCKED. CALL LIGHT IN REACH.
[2022-10-15 05:37] LABS: BASO% 0.3 % (0-3); HEMATOCRIT 30.3 % (37.0-47.0); HEMOGLOBIN 9.5 g/dl (12.0-16.0); IMMATURE GRANULOCYTES 0.1 % (0.0-5.0); LYMPH% 44.4 % (15-41); MEAN CELL VOLUME 83.2 fL CALC (80.0-100.0); MEAN CORPUSCULAR HGB 26.1 pG CALC (26.0-32.0); MEAN CORPUSCULAR HGB CONC 31.4 g/dL CAL (32.0-36.0); MONO% 7.6 % (2-13); NEUT# 2.92 thou/uL (2.00-7.15); NEUT% 42.6 % (42-76); RED BLOOD COUNT 3.64 mill/uL (4.20-5.60); RED CELL DISTRI WIDTH 14.3 % (11.5-15.5)
[2022-10-15 05:47] VITALS: BP 158/70
[2022-10-15 05:51] LABS: ALBUMIN 3.1 g/dL (3.2-5.0); ALKALINE PHOSPHATASE 127 u/l (38-126); ANION GAP 8 (6-22 (CALC)); BUN 21 mg/dL (7-17); BUN/CREATININE RATIO 20 (12-20 (CALC)); CARBON DIOXIDE 24 mmol/l (22-30); CHLORIDE 112 mmol/l (95-108); CREATININE 1.1 mg/dL (0.5-1.0); GFR FOR AFR.AMER. > 60 ML/MIN (>=60 (CALC)); GFR OTHER RACES 51 ML/MIN (>=60 (CALC)); POTASSIUM 4.6 mmol/l (3.5-5.1); SGOT/AST 26 u/l (14-36); SODIUM 140 mmol/l (137-146); TOTAL PROTEIN 6.6 g/dL (6.3-8.2)
[2022-10-15 06:59] VITALS: BP 182/69
--- NOTE | 2022-10-15 08:00 | NUR ---
PT IN BED WITH HOB UP ALERT AND OREINTED X 3, PT HAS NO C/O PAIN. PT HAS TELE ON WITH ALL LEADS ATTACHED. IV SITE CLEAN AND INTACT WITH NS@ 100ML/HR. GOEL INTACT DRAINING CLEAR, YELLOW URINE. PT HAS CALL LIGHT WITHIN REACH AND ALL SAFETY MEASURES IN PLACE.
[2022-10-15 09:00] VITALS: BP 182/69
[2022-10-15] MEDS ORDERED: CIPROFLOXACN500 MG PO (11:03)
--- NOTE | 2022-10-15 12:00 | NUR ---
PT IN BED AWAKE AND ALERT EATING LUNCH WITH FAMILY AT BEDSIDE. PT HAS NO C/O PAIN AT THIS TIME. GOEL INTACT WITH CLEAR, YELLOW URINE. IV SITE PATENT.NO CHANGES IN STATUS AT TIME. CALL LIGHT WITHIN REACH.
--- NOTE | 2022-10-15 14:44 | NUR ---
Discharge instructions given. Patient verbalizes understanding of same. Discharged in stable condition via Wheelchair to Home with volunteer. All belongings sent with pt.
== END 2022-10-15 14:48 | disposition home or self-care (01) | DRG 690 ==
LOC: ED 17:34 → ED-I 20:00 → ED 20:15 → MS2 20:16
PROVIDERS: Nurse Practitioner; Nurse Practitioner Family; ADMIT Internal Medicine; ATTEND Internal Medicine
PROC: 0T9B70Z Drainage of Bladder with Drainage Device, Via Natural or Artificial Opening (ICD-10-PCS; principal; 2022-10-14)
DX: N30.80 Other cystitis without hematuria (principal); B96.1 Klebsiella pneumoniae [K. pneumoniae] as the cause of diseases classified elsewhere; I10 Essential (primary) hypertension; E11.65 Type 2 diabetes mellitus with hyperglycemia; E78.5 Hyperlipidemia, unspecified; F32.A Depression, unspecified; F41.9 Anxiety disorder, unspecified; Z79.84 Long term (current) use of oral hypoglycemic drugs; Z79.4 Long term (current) use of insulin; Z87.440 Personal history of urinary (tract) infections; Z86.73 Personal history of transient ischemic attack (TIA), and cerebral infarction without residual deficits

== ENCOUNTER 2022-12-27 18:01 | Emergency (ER) | payer OTHER ==
[~2022-12-27] VITALS: Ht 157.5 cm; Wt 68.0 kg
[2022-12-27 18:22] VITALS: BP 123/65
[2022-12-27 19:13] VITALS: BP 191/84
[2022-12-27 19:15] LABS: BASO% 0.3 % (0-3); EOS% 1.3 % (0-8); HEMATOCRIT 34.7 % (37.0-47.0); HEMOGLOBIN 11.3 g/dl (12.0-16.0); LYMPH% 29.5 % (15-41); MEAN CELL VOLUME 82.4 fL CALC (80.0-100.0); MEAN CORPUSCULAR HGB 26.8 pG CALC (26.0-32.0); MEAN CORPUSCULAR HGB CONC 32.6 g/dL CAL (32.0-36.0); MONO% 6.7 % (2-13); NEUT# 3.8 thou/uL (2.00-7.15); NEUT% 62.2 % (42-76); RED BLOOD COUNT 4.21 mill/uL (4.20-5.60); RED CELL DISTRI WIDTH 13.8 % (11.5-15.5)
[2022-12-27 19:24] LABS: CREATININE 1.5 mg/dL (0.5-1.0); MAGNESIUM 1.6 mg/dL (1.6-2.3); POTASSIUM 4.6 mmol/l (3.5-5.1); TOTAL PROTEIN 7.9 g/dL (6.3-8.2)
[2022-12-27 19:25] LABS: ALBUMIN 3.8 g/dL (3.2-5.0); BILIRUBIN, TOTAL 0.7 mg/dL (0.02-1.3)
[2022-12-27 19:31] VITALS: BP 192/85
[2022-12-27 20:01] VITALS: BP 198/88
[2022-12-27 20:37] LABS: URINE BILIRUBIN - DIPSTICK NEGATIVE (NEGATIVE); URINE BLOOD DIPSTICK TRACE-INTACT (NEGATIVE); URINE COLOR YELLOW; URINE GLUCOSE - DIPSTICK >=1000 mg/dL (NEGATIVE); URINE KETONE NEGATIVE (NEGATIVE); URINE LEUK ESTERASE NEGATIVE (NEGATIVE); URINE PROTEIN - DIPSTICK 100 mg/dL (NEG-TRACE); URINE SPECIFIC GRAVITY 1.015; URINE UROBILINOGEN - DIPSTICK 0.2 E.U./dL (0.2)
[2022-12-27 20:40] LABS: URINE NITRITE - DIPSTICK NEGATIVE (Negative)
[2022-12-27 20:43] LABS: URINE BACTERIA MANY hpf; URINE SQUAMOUS EPITHELIAL CELL FEW EPI/hpf (0-FEW)
[2022-12-27] MEDS ORDERED: BACTRIM DS1 TAB PO (21:02)
[2022-12-30] MEDS ORDERED: CEPHALEXIN500 M1 PO (09:59)
--- NOTE | 2022-12-31 15:21 | NUR ---
Reached pt by phone and she stated she is still having urinary symptoms. Advised pt of new rx for cephalexin called in to [facility]. Pt verbalized understanding.
== END 2022-12-27 22:01 | disposition home or self-care (01) ==
LOC: ED 18:01
PROVIDERS: Family Medicine
DX: N39.0 Urinary tract infection, site not specified (principal); E11.65 Type 2 diabetes mellitus with hyperglycemia; I10 Essential (primary) hypertension; F41.9 Anxiety disorder, unspecified; F32.A Depression, unspecified; Z86.73 Personal history of transient ischemic attack (TIA), and cerebral infarction without residual deficits; Z79.4 Long term (current) use of insulin; Z79.84 Long term (current) use of oral hypoglycemic drugs

== ENCOUNTER 2023-03-14 09:28 | Emergency (ER) | payer OTHER ==
[~2023-03-14] VITALS: Ht 157.5 cm; Wt 74.8 kg
[~2023-03-14 09:28] MED LIST changes: +CEPHALEXIN500 M1 PO
[2023-03-14] MEDS ORDERED: VALACYCLOVIR500 MG PO (09:57)
[2023-03-14] MEDS ORDERED: BRIMONIDINE0.2 % OD (09:58)
[2023-03-14] MEDS ORDERED: ACETAZOLAMIDE250 MG PO (09:59)
[2023-03-14] MEDS ORDERED: TIMOLOL MAL0.5 % OD (10:01)
[2023-03-14] MEDS ORDERED: LATANOPROST0.005 % OD (10:03)
[2023-03-14] MEDS ORDERED: CIPROFLOXACN0.3 % OD (10:04)
[2023-03-14] MEDS ORDERED: TOBRAMYCIN0.31 OD (10:11)
[2023-03-14 10:30] VITALS: BP 206/116
== END 2023-03-14 10:30 | disposition home or self-care (01) ==
LOC: ED 09:28
DX: S05.01XA Injury of conjunctiva and corneal abrasion without foreign body, right eye, initial encounter (principal); H40.051 Ocular hypertension, right eye; I10 Essential (primary) hypertension; E11.9 Type 2 diabetes mellitus without complications; F41.9 Anxiety disorder, unspecified; F32.A Depression, unspecified; X58.XXXA Exposure to other specified factors, initial encounter; Z86.73 Personal history of transient ischemic attack (TIA), and cerebral infarction without residual deficits; Z79.84 Long term (current) use of oral hypoglycemic drugs; Z79.4 Long term (current) use of insulin

== ENCOUNTER 2023-05-07 22:30 | Emergency (ER) | payer OTHER ==
[~2023-05-07] VITALS: Ht 157.5 cm; Wt 74.4 kg
[~2023-05-07 22:30] MED LIST changes: +ACETAZOLAMIDE250 MG PO; +BRIMONIDINE0.2 % OD; +CIPROFLOXACN0.3 % OD; +LATANOPROST0.005 % OD; +TIMOLOL MAL0.5 % OD; +TOBRAMYCIN0.31 OD; +VALACYCLOVIR500 MG PO
[2023-05-07 23:34] LABS: URINE BLOOD DIPSTICK Small (NEGATIVE); URINE GLUCOSE - DIPSTICK 500 mg/dL (NEGATIVE); URINE KETONE Negative (NEGATIVE); URINE NITRITE - DIPSTICK Negative (Negative); URINE PH 5.5 (4.5-8.0); URINE PROTEIN - DIPSTICK >=300 mg/dL (NEG-TRACE); URINE UROBILINOGEN - DIPSTICK 0.2 E.U./dL (0.2)
[2023-05-07 23:36] LABS: BASO% 0.3 % (0-3); EOS% 5.4 % (0-8); HEMATOCRIT 30.8 % (37.0-47.0); HEMOGLOBIN 9.9 g/dl (12.0-16.0); IMMATURE GRANULOCYTES 0.1 % (0.0-5.0); LYMPH% 39.4 % (15-41); MEAN CELL VOLUME 85.8 fL CALC (80.0-100.0); MEAN CORPUSCULAR HGB 27.6 pG CALC (26.0-32.0); MEAN CORPUSCULAR HGB CONC 32.1 g/dL CAL (32.0-36.0); NEUT# 3.29 thou/uL (2.00-7.15); NEUT% 47.8 % (42-76); RED BLOOD COUNT 3.59 mill/uL (4.20-5.60); RED CELL DISTRI WIDTH 14.4 % (11.5-15.5)
[2023-05-07 23:37] VITALS: BP 206/78
[2023-05-07 23:38] VITALS: BP 195/84
[2023-05-07 23:46] VITALS: BP 169/65
[2023-05-07 23:48] LABS: URINE BILIRUBIN - DIPSTICK Negative (NEGATIVE); URINE COLOR Yellow
[2023-05-07 23:50] LABS: URINE BACTERIA MANY hpf; URINE EPITHELIAL CELLS FEW EPI/hpf (0-FEW); URINE LEUK ESTERASE Moderate (NEGATIVE)
[2023-05-08] LABS: ANION GAP 13 (6-22 (CALC)); BUN 26 mg/dL (7-17); BUN/CREATININE RATIO 26 (12-20 (CALC)); CHLORIDE 115 mmol/l (95-108); GFR FOR AFR.AMER. > 60 ML/MIN (>=60 (CALC)); GFR OTHER RACES 57 ML/MIN (>=60 (CALC)); POTASSIUM 4.7 mmol/l (3.5-5.1); SODIUM 139 mmol/l (137-146)
[2023-05-08 00:01] VITALS: BP 169/56
[2023-05-08 00:01] LABS: CARBON DIOXIDE 16 mmol/l (22-30)
[2023-05-08] MEDS ORDERED: BACTRIM DS1 TAB PO (00:09)
[2023-05-08 00:16] VITALS: BP 182/80
[2023-05-08 00:33] VITALS: BP 193/85
[2023-05-08 00:46] VITALS: BP 158/75
== END 2023-05-08 00:30 | disposition home or self-care (01) ==
LOC: ED 22:30
PROVIDERS: Family Medicine
DX: N39.0 Urinary tract infection, site not specified (principal); E11.65 Type 2 diabetes mellitus with hyperglycemia; I10 Essential (primary) hypertension; F32.A Depression, unspecified; F41.9 Anxiety disorder, unspecified; Z86.73 Personal history of transient ischemic attack (TIA), and cerebral infarction without residual deficits; Z79.84 Long term (current) use of oral hypoglycemic drugs; Z79.4 Long term (current) use of insulin; E66.9 Obesity, unspecified

== ENCOUNTER 2023-07-02 20:12 | Emergency (ER) | payer OTHER ==
[~2023-07-02] VITALS: Ht 157.5 cm; Wt 75.0 kg
[2023-07-02] VITALS (8 sets, daily range): BP systolic 124–189; BP diastolic 59–94
[2023-07-02 21:24] LABS: BASO% 0.3 % (0-3); EOS% 2.3 % (0-8); HEMOGLOBIN 10.8 g/dl (12.0-16.0); IMMATURE GRANULOCYTES 0.1 % (0.0-5.0); LYMPH% 13.3 % (15-41); MEAN CELL VOLUME 85.9 fL CALC (80.0-100.0); MEAN CORPUSCULAR HGB 28.1 pG CALC (26.0-32.0); MEAN CORPUSCULAR HGB CONC 32.7 g/dL CAL (32.0-36.0); MONO% 6.6 % (2-13); NEUT# 5.78 thou/uL (2.00-7.15); NEUT% 77.4 % (42-76); RED BLOOD COUNT 3.84 mill/uL (4.20-5.60); RED CELL DISTRI WIDTH 13.6 % (11.5-15.5)
[2023-07-02 21:44] LABS: ALBUMIN 3.7 g/dL (3.2-5.0); CREATININE 1.6 mg/dL (0.5-1.0); POTASSIUM 4.8 mmol/l (3.5-5.1); TOTAL PROTEIN 8.4 g/dL (6.3-8.2)
[2023-07-02 21:44] LABS: URINE BILIRUBIN - DIPSTICK Negative (NEGATIVE); URINE BLOOD DIPSTICK Small (NEGATIVE); URINE GLUCOSE - DIPSTICK >=1000 mg/dL (NEGATIVE); URINE KETONE Negative (NEGATIVE); URINE LEUK ESTERASE Negative (NEGATIVE); URINE NITRITE - DIPSTICK Negative (Negative); URINE PROTEIN - DIPSTICK >=300 mg/dL (NEG-TRACE); URINE SPECIFIC GRAVITY 1.025; URINE UROBILINOGEN - DIPSTICK 0.2 E.U./dL (0.2)
[2023-07-02 21:47] LABS: BILIRUBIN, TOTAL 0.4 mg/dL (0.02-1.3)
[2023-07-02 21:49] LABS: URINE COLOR Yellow
[2023-07-02 21:55] LABS: URINE SQUAMOUS EPITHELIAL CELL FEW EPI/hpf (0-FEW)
[2023-07-02 21:56] LABS: URINE BACTERIA MANY hpf
[2023-07-03] VITALS: BP 128/58
[2023-07-03] MEDS ORDERED: PROMETHAZINE HY25 M1 PO (00:07)
[2023-07-03 00:30] VITALS: BP 111/57
[2023-07-03 00:35] VITALS: BP 111/57
== END 2023-07-03 03:13 | disposition home or self-care (01) ==
LOC: ED 20:12
PROVIDERS: Family Medicine
DX: R10.13 Epigastric pain (principal); E11.65 Type 2 diabetes mellitus with hyperglycemia; I10 Essential (primary) hypertension; F41.9 Anxiety disorder, unspecified; F32.A Depression, unspecified; Z86.73 Personal history of transient ischemic attack (TIA), and cerebral infarction without residual deficits; Z79.84 Long term (current) use of oral hypoglycemic drugs; R82.71 Bacteriuria; Z79.4 Long term (current) use of insulin
CPT/HCPCS: S0164

== ENCOUNTER 2023-07-12 16:58 | Emergency (ER) | payer OTHER ==
[~2023-07-12] VITALS: Ht 157.5 cm; Wt 69.3 kg
[2023-07-12] VITALS (22 sets, daily range): BP systolic 119–202; BP diastolic 50–117
[~2023-07-12 16:58] MED LIST changes: +PROMETHAZINE HY25 M1 PO
[2023-07-12 18:04] LABS: BASO% 0.4 % (0-3); EOS% 1.9 % (0-8); HEMATOCRIT 34.8 % (37.0-47.0); IMMATURE GRANULOCYTES 0.1 % (0.0-5.0); LYMPH% 24.9 % (15-41); MEAN CORPUSCULAR HGB 27.5 pG CALC (26.0-32.0); MEAN CORPUSCULAR HGB CONC 31.6 g/dL CAL (32.0-36.0); MONO% 5.2 % (2-13); NEUT# 4.52 thou/uL (2.00-7.15); NEUT% 67.5 % (42-76)
[2023-07-12 18:29] LABS: ALBUMIN 3.9 g/dL (3.2-5.0); BILIRUBIN, TOTAL 0.4 mg/dL (0.02-1.3); CREATININE 1.5 mg/dL (0.5-1.0); POTASSIUM 4.5 mmol/l (3.5-5.1); TOTAL PROTEIN 9.3 g/dL (6.3-8.2)
== END 2023-07-12 20:05 ==
LOC: ED 16:58
PROVIDERS: Emergency Medicine
DX: A41.9 Sepsis, unspecified organism (principal); R79.89 Other specified abnormal findings of blood chemistry; I10 Essential (primary) hypertension; E11.9 Type 2 diabetes mellitus without complications; F41.9 Anxiety disorder, unspecified; F32.A Depression, unspecified; E66.9 Obesity, unspecified; Z86.73 Personal history of transient ischemic attack (TIA), and cerebral infarction without residual deficits; Z79.84 Long term (current) use of oral hypoglycemic drugs; Z79.4 Long term (current) use of insulin; Z20.822 Contact with and (suspected) exposure to COVID-19